=== PATIENT | female | born 1940 | race Caucasian/White ===

== ENCOUNTER 2024-02-15 17:37 | Emergency (ER) | payer MEDICARE, MEDICAID, SELFPAY ==
[2024-02-15] VITALS (39 sets, daily range): BP systolic 169–200; BP diastolic 75–107; PULSE 59–80; TEMP 36.7; O2SAT 92–99
--- NOTE | 2024-02-15 17:45 | ECG_ITS ---
The [facility] Test Date: 2024-02-15 Pat Name: NANCY GAO Department: Room: - Gender: Female Pediatric Acute Care Unit Nurse: : 1940 Requested By: CHRIS LEIJA Order Number: [id number] Reading MD: ADELA STOLL Measurements Intervals [place] Rate: 70 P: 57 SD: 142 QRS: 19 QRSD: 84 T: 65 QT: 386 QTc: 407 Interpretive Statements 1100 Sinus rhythm 9110 normal ECG Compared to ECG 06/25/2020 20:43:58 No significant changes Electronically Signed On 02-16-2024 7:45:33 EST by ADELA STOLL
--- NOTE | 2024-02-15 17:58 | ED.CHESTPAI1 ---
HPI - Chest Pain General Chief Complaint: Chest Pain Stated Complaint: chest pain Time Seen by Provider: 02/15/24 17:42 Source: patient and caregiver Mode of arrival: ambulance History of Present Illness HPI narrative: The patient is coming to us from a assisted facility she is 84 years old who is DNR CC, with history of dysarthria is coming to the ER with a left-sided 3 days of left upper chest shoulder pain, she denies any fall or trauma she denies any cough or fever The patient apparently coming here because her daughter wanted to be evaluated for her shoulder and chest pain Related Data Home Medications ?Medication ?Instructions ?Recorded ?Confirmed alendronate 70 mg tablet 70 mg PO .once weekly, saturday02/15/24 02/15/24 benzonatate 200 mg capsule 200 mg PO .q6 02/15/24 02/15/24 calcium 600 mg (as carbonate)-vit 1 tab PO DAILY 02/15/24 02/15/24 D3 20 mcg (800 unit) chewable tablet (Caltrate plus D) carbidopa 25 mg-levodopa 100 mg 1 tab PO TID PRN tremors 02/15/24 02/15/24 tablet entacapone 200 mg tablet 200 mg PO TID PRN tremors 02/15/24 02/15/24 eslicarbazepine 200 mg tablet 1,000 mg PO DAILY 02/15/24 02/15/24 (Aptiom) fluticasone furoate 27.5 1 spray intranasal DAILY 02/15/24 02/15/24 mcg/actuation nasal spray,suspension (Flonase Sensimist) mirtazapine 7.5 mg tablet 7.5 mg PO BEDTIME 02/15/24 02/15/24 omeprazole 20 mg capsule,delayed 20 mg PO DAILY 02/15/24 02/15/24 release pravastatin 40 mg tablet 40 mg PO BEDTIME 02/15/24 02/15/24 ropinirole 0.5 mg tablet 0.5 mg PO TID 02/15/24 02/15/24 sucralfate 1 gram tablet (Carafate) 1 g PO Q4H 02/15/24 02/15/24 tramadol 50 mg tablet 50 mg PO Q12H 02/15/24 02/15/24 Allergies Allergy/AdvReac Type Severity Reaction Status Date / Time buspirone (From BuSpar) Allergy Intermediate Rash Verified 02/15/24 17:47 hydroxyzine (From Vistaril) Allergy Intermediate Rash Verified 02/15/24 17:47 Penicillins Allergy Intermediate Rash Verified 02/15/24 17:47 ibuprofen Allergy Unknown Unknown Verified 02/15/24 17:47 Review of Systems ROS Narrative Although the patient is not a good historian Status of ROS 10 or more systems reviewed and unremarkable except as noted in history and below Exam Narrative Exam Narrative: Nurses notes and vital signs reviewed and patient is not hypoxic. Left shoulder exam: Limited movement of the left shoulder to 45 degrees General: Well-appearing and in no apparent distress. Skin: Warm, dry, no pallor noted. No rash. Head: Normocephalic, atraumatic. Neck: Supple, non-tender. Eye: Pupils are equal, round and EOMI. No scleral icterus. Ears, Nose, the patient have an obvious dysarthria Cardiovascular: Regular Rate and Rhythm without murmur, gallop or rub. Respiratory: No accessory muscle use or respiratory distress. Lungs are clear to auscultation, no wheezing, rales or rhonchi Chest Wall: no tenderness Back: No midline thoracic or lumbar vertebral tenderness. No CVA tenderness GI: Abdomen is soft, non-distended. Normal bowel sounds. No masses appreciated. No tenderness to palpation. No rebound, guarding, or rigidity noted. Neurological: A&O x1. No cranial nerve dysfunction observed. No truncal ataxia. Constitutional Vital Signs, click to edit/add: Last Vital Signs Temp 98.1 F 02/15/24 17:39 Pulse 73 02/15/24 17:39 Resp 16 02/15/24 17:39 BP 181/76 H 02/15/24 17:39 Pulse Ox 97 02/15/24 17:39 O2 Del Method Room Air 02/15/24 17:39 Course Vital Signs Vital signs: Vital Signs Temperature 98.1 F 02/15/24 17:39 Pulse Rate 73 02/15/24 17:39 Respiratory Rate 16 02/15/24 17:39 Blood Pressure 181/76 H 02/15/24 17:39 Pulse Oximetry 97 02/15/24 17:39 Oxygen Delivery Method Room Air 02/15/24 17:39 Temperature 98.1 F 02/15/24 17:39 Pulse Rate 73 02/15/24 17:39 Respiratory Rate 16 02/15/24 17:39 Blood Pressure 181/76 H 02/15/24 17:39 Pulse Oximetry 97 02/15/24 17:39 Oxygen Delivery Method Room Air 02/15/24 17:39 MDM - Chest Pain MDM Narrative Medical decision making narrative: The patient EKG upon arrival showing sinus rhythm with a heart rate of [address] elevation or depression CBC and chemistry showed no acute pathology with a negative troponin The pain right now is mostly secondary to shoulder pain that the patient chest x-ray and x-ray of the shoulder is pending Patient was treated in the ER with Percocet Lab Data Labs: Lab Results 02/15/24 Range/Units 18:04 WBC 5.6 (4.0-11.0) 10^3/uL RBC 3.81 L (4.20-5.40) 10^6/uL Hgb 11.8 L (12.0-16.0) g/dL Hct 35.9 L (36.0-48.0) % MCV 94.2 (81.0-99.0) fL MCH 31.0 (26.7-34.0) pg MCHC 32.9 (29.9-35.2) g/dL RDW 12.4 (11.0-15.0) % Plt Count 289 (150-450) 10^3/uL MPV 9.7 (9.5-13.5) fL Neut % (Auto) 54.1 (43.0-75.0) % Lymph % (Auto) 37.3 (20.5-60.0) % Mclennan % (Auto) 6.1 (1.7-12.0) % Eos % (Auto) 1.6 (0.9-7.0) % Baso % (Auto) 0.7 (0.2-2.0) % Neut # (Auto) 3.0 (1.4-6.5) 10^3/uL Lymph # (Auto) 2.1 (1.2-3.8) 10^3/uL Mclennan # (Auto) 0.3 (0.3-0.8) 10^3/uL Eos # (Auto) 0.1 (0.0-0.7) 10^3/uL Baso # (Auto) 0.0 (0.0-0.1) 10^3/uL Abs Immat Gran (auto) 0.01 (0.00-0.03) 10^3/uL Imm/Tot Granulo (auto) 0.2 (0.0-0.5) % Sodium 144 (136-145) mmol/L Potassium 4.1 (3.5-5.1) mmol/L Chloride 105 (98-107) mmol/L Carbon Dioxide 28.7 (21.0-32.0) mmol/L Anion Gap 14.4 BUN 20.0 H (7.0-18.0) mg/dL Creatinine 0.87 (0.55-1.02) mg/dL Est GFR ( Amer) >60 (>=60 mL/min/1.73m^2) Est GFR (Non-Af Amer) >60 (>=60 mL/min/1.73m^2) BUN/Creatinine Ratio 23.0 Glucose 105 (74-106) mg/dL Calcium 9.9 (8.5-10.1) mg/dL Total Bilirubin 0.2 (0.2-1.0) mg/dL AST 14 L (15-37) U/L ALT 9 L (14-59) U/L Alkaline Phosphatase 72 (46-116) U/L Troponin I High Sens 9.8 (4.0-51.3) pg/mL Total Protein 7.8 (6.4-8.2) g/dL Albumin 3.7 (3.4-5.0) g/dL Globulin 4.1 g/dL Albumin/Globulin Ratio 0.9 Discharge Plan Discharge Patient Disposition: Still a Patient
--- NOTE | 2024-02-15 17:59 | XR_ITS ---
[address] [address] Patient Name: NANCY GAO MRN: [id number] date: 1940 Sex: F Assigned Patient Location: ER Current Patient Location: ED.MAIN Accession/Order Number: [id number] Exam Date: 02/15/2024 18:07 Report Date: 02/15/2024 20:19 At the request of: NIKHIL SPICER Procedure: XR chest 1V EXAM: XR chest 1V HISTORY: cp COMPARISON: 06/25/2020 and earlier. TECHNIQUE: AP upright chest x-ray. FINDINGS: Lungs clear without infiltrate, edema or new density. Heart size and mediastinal contour stable. Prominent descending aorta unchanged. No pleural effusion or pneumothorax. XR/XR chest 1V IMPRESSION: Stable chest x-ray, no acute findings Electronically authenticated by: THERESE CROCKETT Date: 02/15/2024 20:19
[2024-02-15 18:10] LABS: Basophils Percent Auto 0.7 % (0.2-2.0); Eosinophils Absolute Auto 0.1 10^3/uL (0.0-0.7); Eosinophils Percent Auto 1.6 % (0.9-7.0); Hematocrit 35.9 % (36.0-48.0); Hemoglobin 11.8 g/dL (12.0-16.0); Immature Granulocytes Abs Auto 0.01 10^3/uL (0.00-0.03); Immature Granulocytes Pct Auto 0.2 % (0.0-0.5); Lymphocytes Absolute Auto 2.1 10^3/uL (1.2-3.8); Lymphocytes Percent Auto 37.3 % (20.5-60.0); Mean Corpuscular HGB Conc 32.9 g/dL (29.9-35.2); Mean Corpuscular Volume 94.2 fL (81.0-99.0); Mean Platelet Volume 9.7 fL (9.5-13.5); Monocytes Absolute Auto 0.3 10^3/uL (0.3-0.8); Monocytes Percent Auto 6.1 % (1.7-12.0); Neutrophils Percent Auto 54.1 % (43.0-75.0); Platelet Count 289 10^3/uL (150-450); Red Blood Count 3.81 10^6/uL (4.20-5.40); Red Cell Distribution Width 12.4 % (11.0-15.0); White Blood Count 5.6 10^3/uL (4.0-11.0)
[2024-02-15 18:27] LABS: Alanine Aminotransferase 9 U/L (14-59); Albumin Globulin Ratio 0.9; Albumin Level 3.7 g/dL (3.4-5.0); Alkaline Phosphatase 72 U/L (46-116); Anion Gap 14.4; Aspartate Amino Transferase 14 U/L (15-37); Bilirubin Total 0.2 mg/dL (0.2-1.0); Calcium 9.9 mg/dL (8.5-10.1); Carbon Dioxide 28.7 mmol/L (21.0-32.0); Chloride 105 mmol/L (98-107); Estimated GFR (African America >60 (>=60 mL/min/1.73m^2); Estimated GFR (Non-African Ame >60 (>=60 mL/min/1.73m^2); Globulin 4.1 g/dL; Glucose 105 mg/dL (74-106); Potassium 4.1 mmol/L (3.5-5.1); Sodium 144 mmol/L (136-145); Total Protein 7.8 g/dL (6.4-8.2); Troponin I High Sensitivity 9.8 pg/mL (4.0-51.3)
--- NOTE | 2024-02-15 18:32 | XR_ITS ---
The [address] [address] Patient Name: NANCY GAO MRN: [id number] date: 1940 Sex: F Assigned Patient Location: ER Current Patient Location: Accession/Order Number: [id number] Exam Date: 02/15/2024 18:45 Report Date: 02/15/2024 20:44 At the request of: NIKHIL SPICER Procedure: XR shoulder LT min 2V EXAM: XR shoulder LT min 2V HISTORY: The patient is an 84-year-old female, pain COMPARISON: None. FINDINGS: The left shoulder is radiographically negative with no evidence of fracture, dislocation, calcific tendonitis, or other osseous or articular abnormalities. The glenohumeral joint is grossly maintained. The acromioclavicular joint is maintained. The subacromial space is maintained. XR/XR shoulder LT min 2V IMPRESSION: Negative. Electronically authenticated by: SERINA MORAN Date: 02/15/2024 20:44
--- NOTE | 2024-02-15 18:49 | XR_ITS ---
The [address] [address] Patient Name: NANCY GAO MRN: [id number] date: 1940 Sex: F Assigned Patient Location: ER Current Patient Location: ER Accession/Order Number: [id number] Exam Date: 02/15/2024 18:45 Report Date: 02/15/2024 20:45 At the request of: NIKHIL SPICER Procedure: XR forearm LT 2V EXAM: XR forearm LT 2V HISTORY: The patient is an 84-year-old female, fall COMPARISON: None. XR/XR forearm LT 2V IMPRESSION: No acute fractures are seen throughout the lengths of the left radius and ulna. 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 Electronically authenticated by: SERINA MORAN Date: 02/15/2024 20:45
[2024-02-15] MEDS: OXYCODONE HCL/ACETAMINOPHEN 5MG/325MG 1 TAB PO (18:50)
--- NOTE | 2024-02-15 20:57 | ED_ITS ---
HPI - Chest Pain General Chief Complaint: Chest Pain Stated Complaint: chest pain Time Seen by Provider: 02/15/24 17:42 Source: patient and caregiver Mode of arrival: ambulance History of Present Illness HPI narrative: 84-year-old female presents to the emergency department and was initially seen by Dr. Noriega and signed out to me after discussing the case with her thoroughly. Please see her full history and physical exam. Related Data Home Medications ?Medication ?Instructions ?Recorded ?Confirmed alendronate 70 mg tablet 70 mg PO .once weekly, saturday02/15/24 02/15/24 benzonatate 200 mg capsule 200 mg PO .q6 02/15/24 02/15/24 calcium 600 mg (as carbonate)-vit 1 tab PO DAILY 02/15/24 02/15/24 D3 20 mcg (800 unit) chewable tablet (Caltrate plus D) carbidopa 25 mg-levodopa 100 mg 1 tab PO TID PRN tremors 02/15/24 02/15/24 tablet entacapone 200 mg tablet 200 mg PO TID PRN tremors 02/15/24 02/15/24 eslicarbazepine 200 mg tablet 1,000 mg PO DAILY 02/15/24 02/15/24 (Aptiom) fluticasone furoate 27.5 1 spray intranasal DAILY 02/15/24 02/15/24 mcg/actuation nasal spray,suspension (Flonase Sensimist) mirtazapine 7.5 mg tablet 7.5 mg PO BEDTIME 02/15/24 02/15/24 omeprazole 20 mg capsule,delayed 20 mg PO DAILY 02/15/24 02/15/24 release pravastatin 40 mg tablet 40 mg PO BEDTIME 02/15/24 02/15/24 ropinirole 0.5 mg tablet 0.5 mg PO TID 02/15/24 02/15/24 sucralfate 1 gram tablet (Carafate) 1 g PO Q4H 02/15/24 02/15/24 tramadol 50 mg tablet 50 mg PO Q12H 02/15/24 02/15/24 Allergies Allergy/AdvReac Type Severity Reaction Status Date / Time buspirone (From BuSpar) Allergy Intermediate Rash Verified 02/15/24 17:47 hydroxyzine (From Vistaril) Allergy Intermediate Rash Verified 02/15/24 17:47 Penicillins Allergy Intermediate Rash Verified 02/15/24 17:47 ibuprofen Allergy Unknown Unknown Verified 02/15/24 17:47 Exam Constitutional Vital Signs, click to edit/add: Last Vital Signs Temp 98.1 F 02/15/24 17:39 Pulse 61 02/15/24 20:30 Resp 14 02/15/24 20:30 BP 177/83 H 02/15/24 20:30 Pulse Ox 97 02/15/24 20:30 O2 Del Method Room Air 02/15/24 17:39 Course Vital Signs Vital signs: Vital Signs Temperature 98.1 F 02/15/24 17:39 Pulse Rate 73 02/15/24 17:39 Respiratory Rate 16 02/15/24 17:39 Blood Pressure 181/76 H 02/15/24 17:39 Pulse Oximetry 97 02/15/24 17:39 Oxygen Delivery Method Room Air 02/15/24 17:39 Temperature 98.1 F 02/15/24 17:39 Pulse Rate 61 02/15/24 20:30 Respiratory Rate 14 02/15/24 20:30 Blood Pressure 177/83 H 02/15/24 20:30 Pulse Oximetry 97 02/15/24 20:30 Oxygen Delivery Method Room Air 02/15/24 17:39 MDM - Chest Pain MDM Narrative Medical decision making narrative: Her workup is negative including troponin and several x-rays. She is released back to [facility]. Differential Diagnosis Differential diagnosis: Likely pneumothorax, unstable angina pectoris, atypical chest pain, st elevation myocardial infarction and chest pain Lab Data Attestation: I reviewed the patient's lab results. Labs: Lab Results 02/15/24 Range/Units 18:04 WBC 5.6 (4.0-11.0) 10^3/uL RBC 3.81 L (4.20-5.40) 10^6/uL Hgb 11.8 L (12.0-16.0) g/dL Hct 35.9 L (36.0-48.0) % MCV 94.2 (81.0-99.0) fL MCH 31.0 (26.7-34.0) pg MCHC 32.9 (29.9-35.2) g/dL RDW 12.4 (11.0-15.0) % Plt Count 289 (150-450) 10^3/uL MPV 9.7 (9.5-13.5) fL Neut % (Auto) 54.1 (43.0-75.0) % Lymph % (Auto) 37.3 (20.5-60.0) % Price % (Auto) 6.1 (1.7-12.0) % Eos % (Auto) 1.6 (0.9-7.0) % Baso % (Auto) 0.7 (0.2-2.0) % Neut # (Auto) 3.0 (1.4-6.5) 10^3/uL Lymph # (Auto) 2.1 (1.2-3.8) 10^3/uL Price # (Auto) 0.3 (0.3-0.8) 10^3/uL Eos # (Auto) 0.1 (0.0-0.7) 10^3/uL Baso # (Auto) 0.0 (0.0-0.1) 10^3/uL Abs Immat Gran (auto) 0.01 (0.00-0.03) 10^3/uL Imm/Tot Granulo (auto) 0.2 (0.0-0.5) % Sodium 144 (136-145) mmol/L Potassium 4.1 (3.5-5.1) mmol/L Chloride 105 (98-107) mmol/L Carbon Dioxide 28.7 (21.0-32.0) mmol/L Anion Gap 14.4 BUN 20.0 H (7.0-18.0) mg/dL Creatinine 0.87 (0.55-1.02) mg/dL Est GFR ( Amer) >60 (>=60 mL/min/1.73m^2) Est GFR (Non-Af Amer) >60 (>=60 mL/min/1.73m^2) BUN/Creatinine Ratio 23.0 Glucose 105 (74-106) mg/dL Calcium 9.9 (8.5-10.1) mg/dL Total Bilirubin 0.2 (0.2-1.0) mg/dL AST 14 L (15-37) U/L ALT 9 L (14-59) U/L Alkaline Phosphatase 72 (46-116) U/L Troponin I High Sens 9.8 (4.0-51.3) pg/mL Total Protein 7.8 (6.4-8.2) g/dL Albumin 3.7 (3.4-5.0) g/dL Globulin 4.1 g/dL Albumin/Globulin Ratio 0.9 Discharge Plan Discharge Chief Complaint: Chest Pain Clinical Impression: Chronic shoulder pain, Chest pain Patient Disposition: Home, Self-Care Time of Disposition Decision: 20:56 Condition: Good Mode of Transportation: Private Vehicle Prescriptions / Home Meds: No Action alendronate 70 mg tablet 70 mg PO .once weekly, saturday Aptiom 200 mg tablet 1,000 mg PO DAILY benzonatate 200 mg capsule 200 mg PO .q6 carbidopa-levodopa 25-100 mg tablet 1 tab PO TID PRN (Reason: tremors) Caltrate 600 plus D 600 mg-20 mcg (800 unit) tablet,chewable 1 tab PO DAILY sucralfate [Carafate] 1 gram tablet 1 g PO Q4H entacapone 200 mg tablet 200 mg PO TID PRN (Reason: tremors) Flonase Sensimist 27.5 mcg/actuation spray,suspension 1 spray intranasal DAILY Rx Instructions: into each nostril mirtazapine 7.5 mg tablet 7.5 mg PO BEDTIME omeprazole 20 mg capsule,delayed release(DR/EC) 20 mg PO DAILY pravastatin 40 mg tablet 40 mg PO BEDTIME ropinirole 0.5 mg tablet 0.5 mg PO TID tramadol 50 mg tablet 50 mg PO Q12H Print Language: Luxembourgish Instructions: Chest Pain (ED), Arm Pain (ED) Referrals: CHRIS LEIJA DO [Primary Care Provider] - 1 week
== END 2024-02-15 23:34 | disposition home or self-care (01) ==
PROVIDERS: Emergency Medicine; Emergency Provider Emergency Medicine; PCP Internal Medicine
DX: R07.9 Chest pain, unspecified (principal); M25.512 Pain in left shoulder; G89.29 Other chronic pain; Z66 Do not resuscitate; R47.1 Dysarthria and anarthria
CPT/HCPCS: 36415; 71045; 73030; 73090; 80053; 84484; 85025; 93005; 99285

== ENCOUNTER 2024-05-21 21:29 | Inpatient (IN) | payer MEDICARE, MEDICAID, SELFPAY ==
[2024-05-21] VITALS (20 sets, daily range): BP systolic 83–157; BP diastolic 44–97; PULSE 52–92; TEMP 35.9; O2SAT 94–99
--- NOTE | 2024-05-21 21:32 | ED_ITS ---
HPI HPI - General Adult General Chief complaint: Altered Mental Status Stated complaint: other Time Seen by Provider: 05/21/24 21:32 History of Present Illness HPI narrative: Patient is DNR CC. Patient is a 84-year-old female who is presenting to the ER with chief complaint of unresponsive episode. There is approximately 1 hour that patient was not seen from her normal baseline. Patient was reassessed by nursing staff tonight, patient was unresponsive. Please refer back to nursing notes when she was checked at bedtime. Patient is a DNR CC. They have spoken to Dr. Moreno, the physician for the facility. He recommended keeping the patient at [facility] and patient can be reassessed tomorrow. This is per nursing staff from [facility]. Daughter was contacted, and daughter wanted patient sent to the ER for evaluation of why she is very unresponsive. Patient daughter is a power of commercial real estate attorney we are being told. Patient is normally eating and functioning. Patient is enrolled in hospice. Hospice nurse has been called. [facility] and patient was being taken out by EMS, hospice nurse will be coming to the ER as well along with daughter. Carpi is daughter's name, power of commercial real estate attorney. I will be calling her to discuss the case. In reviewing her diagnoses, patient has Parkinson's, COPD, bipolar 2, hypertension, dysarthria and anarthria, cognitive communicative defect, major depressive disorder, anxiety, GERD, All systems are negative except as noted/marked. All systems reviewed and otherwise negative. Nurses note and vital signs reviewed and patient is not hypoxic. Patient has her eyes open, tongue out, she is not speaking, she is not following commands, she does not respond to painful stimuli, patient has a GCS of 6. Patient is DNR CC General: The patient appears well and in no apparent distress. Patient is resting comfortably on cart. Patient is not toxic, lethargic, or listless. Patient has baseline tremors, she has secondary Parkinson's history. Skin: Warm, dry, no pallor noted. There is no rash noted. No petechiae, purpura. Head: Normocephalic, atraumatic. Patient has tongue protrusion, this is chronic. Patient does have coarse, gurgly upper respiratory noise on inspiration, Eye: Normal conjunctiva, no drainage, EOMI. PERRL Ears, Nose, Mouth, and Throat: oral mucosa is moist. Nares patent. Mouth without vesicles. Cardiovascular: Regular Rate and Rhythm, no murmur, gallop, rub Respiratory: Patient is in no distress, no accessory muscle use, lungs are clear to auscultation, no wheezing, rales or rhonchi. Breath sounds are clear equal bilateral. Back: non-tender, no CVA tenderness bilaterally to percussion. No CT LS midline pain GI: Soft, no grimace with palpation diffusely to abdomen, no peritoneal signs or grimace noted, no rigidity or tympany, no pulsatile mass, no masses appreciated. No distention Musculoskeletal: Patient has no active range of motion of extremities. With passive range of motion, patient does have some muscle tone to bilateral upper extremities, right side appears to be slightly stronger than left. When raising up patient's lower extremities, they drop to the table quickly, no obvious muscle tone noted to lower extremities. Neurological: A&O x0, GCS of 6. Related Data Home Medications ?Medication ?Instructions ?Recorded ?Confirmed alendronate 70 mg tablet 70 mg PO .once weekly, saturday02/15/24 02/15/24 benzonatate 200 mg capsule 200 mg PO .q6 02/15/24 02/15/24 calcium 600 mg (as carbonate)-vit 1 tab PO DAILY 02/15/24 02/15/24 D3 20 mcg (800 unit) chewable tablet (Caltrate plus D) carbidopa 25 mg-levodopa 100 mg 1 tab PO TID PRN tremors 02/15/24 02/15/24 tablet entacapone 200 mg tablet 200 mg PO TID PRN tremors 02/15/24 02/15/24 eslicarbazepine 200 mg tablet 1,000 mg PO DAILY 02/15/24 02/15/24 (Aptiom) fluticasone furoate 27.5 1 spray intranasal DAILY 02/15/24 02/15/24 mcg/actuation nasal spray,suspension (Flonase Sensimist) mirtazapine 7.5 mg tablet 7.5 mg PO BEDTIME 02/15/24 02/15/24 omeprazole 20 mg capsule,delayed 20 mg PO DAILY 02/15/24 02/15/24 release pravastatin 40 mg tablet 40 mg PO BEDTIME 02/15/24 02/15/24 ropinirole 0.5 mg tablet 0.5 mg PO TID 02/15/24 02/15/24 sucralfate 1 gram tablet (Carafate) 1 g PO Q4H 02/15/24 02/15/24 tramadol 50 mg tablet 50 mg PO Q12H 02/15/24 02/15/24 Allergies Allergy/AdvReac Type Severity Reaction Status Date / Time buspirone (From BuSpar) Allergy Intermediate Rash Verified 02/15/24 17:47 hydroxyzine (From Vistaril) Allergy Intermediate Rash Verified 02/15/24 17:47 Penicillins Allergy Intermediate Rash Verified 02/15/24 17:47 ibuprofen Allergy Unknown Unknown Verified 02/15/24 17:47 Opioid HPI Opioid Management Most Recent Opioid Data: No Data to Display Exam Constitutional Vital Signs, click to edit/add: Last Vital Signs Temp 96.7 F L 05/21/24 21:30 Pulse 64 05/22/24 01:50 Resp 10 L 05/22/24 01:50 BP 134/67 05/22/24 01:30 Pulse Ox 96 05/22/24 01:50 O2 Del Method Room Air 05/21/24 21:44 Course Vital Signs Vital signs: Vital Signs Temperature 96.7 F L 05/21/24 21:30 Pulse Rate 90 05/21/24 21:30 Respiratory Rate 20 05/21/24 21:30 Blood Pressure 157/84 H 05/21/24 21:30 Pulse Oximetry 98 05/21/24 21:30 Oxygen Delivery Method Room Air 05/21/24 21:30 Temperature 96.7 F L 05/21/24 21:30 Pulse Rate 64 05/22/24 01:50 Respiratory Rate 10 L 05/22/24 01:50 Blood Pressure 134/67 05/22/24 01:30 Pulse Oximetry 96 05/22/24 01:50 Oxygen Delivery Method Room Air 05/21/24 21:44 Medical Decision Making MDM Narrative Medical decision making narrative: 2139 I have spoken to patient's daughter, Capri. She stated that Dr. Moreno has said that she has a history of seizures, but patient's daughter then power of commercial real estate attorney for 4 years and has no recollection that patient ever having seizures before. She does have Parkinson's. She would like testing to be done to try and understand why patient is unresponsive at this time. EKG #2. Tachycardic rhythm, RR intervals appear to be equal, questionable SVT versus A-fib with RVR versus a flutter. Heart rate was read as 163, QTc of 486. Artifact seen. Tachycardic rhythm is new within 12 minutes after the first EKG was done. EKG #3. Patient appears to be in a 3-1 a flutter. Irregular irregular at 86 beats a minute. Normal axis deviation. Artifact seen. QTc of 395. Artifact noted. 2210 hospice nurse James from [facility] stopped by to see the patient, reported updates were given to her as well by myself and Cecilia PASCUAL. 2213 I spoke to the field evidence technician answering the phones for [facility]. I requested to speak to the radiologist, I am waiting for them to call back. Direct line to the ER was given. 2215 patient's daughter called, stating that she cannot come to the hospital tonight because she does not have enough car seats for the kids at her house. 2225 patient had another short episode of heart rate in the 150s to 60s. Patient's heart rate improved went back down into the 80s and 90s with most likely 3-1 a flutter after only approximately 1 minute. Patient is going to be given 1 mg of Ativan for comfort, also given 1 dose of Lopressor to help maintain patient's heart rate in the 80s or 90s so she does not have palpitations or possible discomfort with palpitations. Patient's mental status has not changed. 2323 EKG #4. Patient has converted back to normal sinus rhythm at 55 beats a minute. Normal axis deviation. Sinus bradycardia noted, 55 beats a minute. QTc of 435. 0015 I do spoke to patient's daughter again, Capri, power of commercial real estate attorney. She would like patient admitted to the hospital which is a safe option at this point. Patient has had a few more episodes where she would become tachycardic, most likely a flutter for a few minutes and then patient heart rate will resolve and go back into normal sinus rhythm. After Lopressor was given, patient's heart rate was in the 50s, bradycardic sinus rhythm. Patient blood pressure did drop slightly, patient was given 500 cc of fluids. First troponin was elevated at 199. It is questionable how long this may have been going on as far as intermittent tachycardic/a flutter. This could be going on for days or weeks, which could be part of patient's elevated troponin, uncertain. I asked Capri, how that she normally ambulate. Patient cannot walk on her own. Patient is a 1-2 person assist using a walker on a good day secondary to her Parkinson's. Lately, patient has been a total assist and wheelchair bound that she cannot get up with a walker. Daughter still agrees with DNRCC status, however she would like patient monitored to see if something could be done to help control heart rate better to help improve quality of life, not quantity. She was thankful for the phone call, I am currently calling Ann-Marie nurse practitioner for the hospitalist team. [address] brain showed no acute intracranial process. I discussed this case with radiologist Dr. Lawrence at 2243. Chest x-ray showed no acute process, mild hypoinflated lungs, no lobar consolidation or edema, no pleural effusion or pneumothorax. Chest x-ray was read by Dr. Park. CTA chest impressions were discussed with Ann-Marie JUÁREZ. Patient has mucous plugs of the right lower lobe with associated postobstructive pneumonia and/or atelectasis. Air bronchograms noted in the right lower lobe with the affected area. Mild enlarged heart size. No thoracic aortic aneurysm or dissection. No PE, no edema, no effusion, no pneumothorax. Mild enlarged right thyroid lobe with cystic nodule within the right thyroid lobe. Ann-Marie JUÁREZ is aware of these readings as well. Multiple medications have been given, IV fluids, continuous cardiac monitoring, monitoring intermittent tachycardia versus a flutter 3-1 versus bradycardia. 4 different EKGs have been done. Critical care time 65 minutes exclusive from separate billable procedures that were performed. The following was considered in the determination of critical care but not limited to the level of medical decision making, intensive cardiac and/or respiratory monitoring, frequent vital sign monitoring, evaluation of laboratory studies, evaluation of radiographic studies, oxygen monitoring, and constant monitoring and speaking to family at bedside Lab Data Lab results reviewed: Yes I reviewed the patient's lab results Labs: Lab Results 05/21/24 Range/Units 21:40 WBC 7.6 (4.0-11.0) 10^3/uL RBC 3.49 L (4.20-5.40) 10^6/uL Hgb 10.8 L (12.0-16.0) g/dL Hct 34.0 L (36.0-48.0) % MCV 97.4 (81.0-99.0) fL MCH 30.9 (26.7-34.0) pg MCHC 31.8 (29.9-35.2) g/dL RDW 13.1 (11.0-15.0) % Plt Count 311 (150-450) 10^3/uL MPV 9.7 (9.5-13.5) fL Neut % (Auto) 73.5 (43.0-75.0) % Lymph % (Auto) 18.5 L (20.5-60.0) % [place] % (Auto) 6.7 (1.7-12.0) % Eos % (Auto) 0.5 L (0.9-7.0) % Baso % (Auto) 0.4 (0.2-2.0) % Neut # (Auto) 5.6 (1.4-6.5) 10^3/uL Lymph # (Auto) 1.4 (1.2-3.8) 10^3/uL [place] # (Auto) 0.5 (0.3-0.8) 10^3/uL Eos # (Auto) 0.0 (0.0-0.7) 10^3/uL Baso # (Auto) 0.0 (0.0-0.1) 10^3/uL Abs Immat Gran (auto) 0.03 (0.00-0.03) 10^3/uL Imm/Tot Granulo (auto) 0.4 (0.0-0.5) % PT 11.0 (9.0-11.6) sec INR 1.04 APTT 24.9 (22.3-36.2) sec VBG pH 7.318 L (7.330-7.430) VBG pCO2 57.1 H (40.0-52.0) mmHg Sodium 145 (136-145) mmol/L Potassium 4.4 (3.5-5.1) mmol/L Chloride 108 H (98-107) mmol/L Carbon Dioxide 29.9 (21.0-32.0) mmol/L Anion Gap 11.5 BUN 27.0 H (7.0-18.0) mg/dL Creatinine 1.02 (0.55-1.02) mg/dL Est GFR ( Amer) >60 (>=60 mL/min/1.73m^2) Est GFR (Non-Af Amer) 52 L (>=60 mL/min/1.73m^2) BUN/Creatinine Ratio 26.5 Glucose 139 H (74-106) mg/dL Calcium 9.3 (8.5-10.1) mg/dL Total Bilirubin 0.2 (0.2-1.0) mg/dL AST 39 H (15-37) U/L ALT 18 (14-59) U/L Alkaline Phosphatase 85 (46-116) U/L Troponin I High Sens 199.9 H* (4.0-51.3) pg/mL NT-Pro-B Natriuret Pep 1139.0 (<=1800.0) pg/mL Total Protein 7.3 (6.4-8.2) g/dL Albumin 3.6 (3.4-5.0) g/dL Globulin 3.7 g/dL Albumin/Globulin Ratio 1.0 TSH 3.063 (0.358-3.740) uIU/mL Respiratory acidosis, pH 7.31, CO2 57. Troponin 199 ECG Data Attestation: I personally reviewed and interpreted this ECG as follows: (EKG interpretation. Artifact noted secondary to patient shaking. Normal axis deviation. Normal sinus rhythm 99 beats a minute. QTc of 418.) Discharge Plan Discharge Chief Complaint: Altered Mental Status Clinical Impression: Unresponsive, Change in mental status, Atrial flutter with rapid ventricular response, Mild dehydration, Acute respiratory acidosis Patient Disposition: Admitted As Inpatient Time of Disposition Decision: 00:20 Condition: Serious
--- OUTSIDE RECORDS SUMMARY | 2024-05-21 21:35 | XMS_ITS | CCD ---
Author Organization [facility] [place] [facility] Care Team Providers Care Leather Drier Name Role Phone MERLY, DR NICK Juárez Attending Unavailabl nguyễn DUNHAMECK, DR NICK Juárez Consulting Unavailabl e REINECK, DR NICK Juárez Admitting Unavailabl e VALONE, DR PEREZ Primary Care Unavailable AHDOOTONEAL Consulting Unavailable GAVI, ELIANA Consulting Unavailable VALONE, DR PEREZ Attending Unavailable VALONE, DR PREEZ Consulting Unavailable VALONE, DR PEREZ Primary Care Unavailable VALONE, DR PEREZ Admitting Unavailable VALONE, DR PEREZ Primary Care Unavailable SELVIN, DR LUIS Sanders Attending Unavailable SELVIN, DR LUIS Sanders Consulting Unavailable SELVIN, DR LUIS Sanders Admitting Unavailable JOSSELINE, YUMIKO Consulting Unavailable Alfredito, Moses Consulting Unavailable Allergies Allergy Classification Reported Allergen(s) Allergy Type Date of Onset Reaction(s) Facility Antihistamines (1 source) hydrOXYzine Drug Allergy 01-16-2013 [facility] Repository busPIRone (1 source) busPIRone Drug Allergy 11-15-2016 [facility] Rep[facility] NSAIDs (1 source) Ibuprofen Drug Allergy 01-16-2013 [facility] Rep[facility] Penicillins (antibiotic) (1 source) Penicillins Drug Allergy 01-16-2013 [facility] Repository Problems Active Problems Problem Classification Problem Date Documented Da te Episodic/Chronic Anxiety disorders (1 source) Anxiety disorder, unspecified; Translations: [ANXIETY DISORDER UNSPECIFIED] Onset: 06-28-2020 Chronic Chronic obstructive pulmonary disease and bronchiectasis (1 source) Chronic obstructive pulmonary disease, unspecified; Translations: [COPD UNSPECIFIED] Onset: 06-28-2020 Chronic Diabetes mellitus without complication (1 source) Type 2 diabetes mellitus without complications; Translations: [TYPE 2 DM WITHOUT COMPLICATIONS] Onset: 06-28-2020 Chronic Esophageal disorders (1 source) Gastro-esophageal reflux disease without esophagitis; Translations: [GERD WITHOUT ESOPHAGITIS] Onset: 06-28-2020 Chronic Essential hypertension (1 source) Essential (primary) hypertension; Translations: [ESSENTIAL PRIMARY HYPERTENSION] Onset: 06-28-2020 Chronic Headache; including migraine (3 sources) Headache; including migraine; Translations: [HEADACHE UNSPECIFIED] Onset: 05-06-2020 Mood disorders (1 source) Bipolar disorder, unspecified; Translations: [BIPOLAR DISORDER UNSPECIFIED] Onset: 06-28-2020 Chronic Nonspecific chest pain (4 sources) Chest pain, unspecified; Translations: [CHEST PAIN UNSPECIFIED] Onset: 06-25-2020 Episodic Osteoarthritis (1 source) Unspecified osteoarthritis, unspecified site; Translations: [UNSPECIFIED OSTEOARTHRITIS UNS SITE] Onset: 05-12-2020 Chronic Osteoporosis (1 source) Age-related osteoporosis without current pathological fracture; Translations: [AGE-REL OSTEOPOR W/O CURR PATH FX] Onset: 05-12-2020 Chronic Other aftercare (5 sources) 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; Translations: [[employer]ER CURRENT DRUG THERAPY] Onset: 06-28-2020 Episodic Other aftercare (1 source) 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; Translations: [PRISON CURRENT USE OF ASPIRIN] Onset: 06-28-2020 Episodic Other hereditary and degenerative nervous system conditions (1 source) Restless legs syndrome; Translations: [RESTLESS LEGS SYNDROME] Onset: 05-12-2020 Chronic Parkinson`s disease (1 source) Parkinson's disease; Translations: [PARKINSONS DISEASE] Onset: 06-28-2020 Chronic Peripheral and visceral atherosclerosis (1 source) Peripheral vascular disease, unspecified; Translations: [PERIPHERAL VASCULAR DISEASE UNS] Onset: 05-12-2020 Chronic Past or Other Problems Problem Classification Problem Date Documented Da te Episodic/Chronic Calculus of urinary tract (1 source) Personal history of urinary calculi; Translations: [PERSONAL HISTORY OF URINARY CALCULI] Onset: 05-12-2020 Episodic Fluid and electrolyte disorders (1 source) Hypokalemia; Translations: [HYPOKALEMIA] Onset: 05-12-2020 Episodic Other injuries and conditions due to external causes (1 source) Encounter for examination and observation following other accident; Translations: [ENC EXAM AND OBSERVATION FOLLOW OTH ACC] Onset: 05-12-2020 Episodic Residual codes; unclassified (1 source) Sleep disorder, unspecified; Translations: [SLEEP DISORDER UNSPECIFIED] Onset: 05-12-2020 Episodic Screening and history of mental health and substance abuse codes (1 source) Personal history of nicotine dependence; Translations: [PERSONAL HISTORY OF NICOTINE DEPEND] Onset: 05-12-2020 Episodic Urinary tract infections (1 source) Urinary tract infection, site not specified; Translations: [UTI SITE NOT SPECIFIED] Onset: 05-12-2020 Episodic Results Test Name Value Interpretation Reference Range Facility Dipstick and Microscopicon 0 11-14-2020 Appearance (U) Cloudy Critically abnormal Clear F [facility] Comment on above: Order Comment: Name Collection Type:: Clean-Voided Midstream Performed By: #### C UU, ADDONUAPLUS #### [address] Bacteria,Urine 4+ High None Seen [facility] Comment on above: Order Comment: Name Collection Type:: Clean-Voided Midstream Result Comment: PERF ORMED BY: [place] [address] PATHOLOGIST SADDLE TREE STITCHER MOSHE SERVIN M.D. Performed By: #### C UU, ADDONUAPLUS #### [facility] [address] [place] [address] [place] Bilirubin,Urine Normal Negative [facility] Comment on above: Order Comment: Name Collection Type:: Clean-Voided Midstream Result Comment: Unab le to obtain accurate result due to color interference. Performed By: #### C UU, ADDONUAPLUS #### [facility] [address] [place] [address] [place] Calcium Oxalate Crystals,Urine 2+ Normal [facility] Comment on above: Order Comment: Name Collection Type:: Clean-Voided Midstream Performed By: #### C UU, ADDONUAPLUS #### [address] Color (U) Angelina Critically abnormal Yellow [facility] Comment on above: Order Comment: Name Collection Type:: Clean-Voided Midstream Performed By: #### C UU, ADDONUAPLUS #### [facility] [address] [place] [address] [place] Glucose Ql (U) Normal Normal [facility] Comment on above: Order Comment: Name Collection Type:: Clean-Voided Midstream Result Comment: Unab le to obtain accurate result due to color interference. Performed By: #### C UU, ADDONUAPLUS #### [address] Ketones Ql (U) Normal Negative [facility] Comment on above: Order Comment: Name Collection Type:: Clean-Voided Midstream Result Comment: Unab le to obtain accurate result due to color interference. Performed By: #### C UU, ADDONUAPLUS #### [address] Leukocyte esterase Test strip Ql (U) Normal Negative [facility] Comment on above: Order Comment: Name Collection Type:: Clean-Voided Midstream Result Comment: Unab le to obtain accurate result due to color interference. Performed By: #### C UU, ADDONUAPLUS #### [place] [address] [place] Nitrite,Urine Normal Negative [facility] Comment on above: Order Comment: Name Collection Type:: Clean-Voided Midstream Result Comment: Unab le to obtain accurate result due to color interference. Performed By: #### C UU, ADDONUAPLUS #### [place] [address] [place] Occult Blood,Urine Normal Negative [facility] Comment on above: Order Comment: Name Collection Type:: Clean-Voided Midstream Result Comment: Unab le to obtain accurate result due to color interference. Performed By: #### C UU, ADDONUAPLUS #### [place] [address] [place] pH,Urine Normal 5.0-9.0 [facility] Comment on above: Order Comment: Name Collection Type:: Clean-Voided Midstream Result Comment: Unab le to obtain accurate result due to color interference. Performed By: #### C UU, ADDONUAPLUS #### [place] [address] [place] Protein,Urine Normal Negative [facility] Comment on above: Order Comment: Name Collection Type:: Clean-Voided Midstream Result Comment: Unab le to obtain accurate result due to color interference. Performed By: #### C UU, ADDONUAPLUS #### [address] RBC,Urine 20-49 High 0-4 [facility] Comment on above: Order Comment: Name Collection Type:: Clean-Voided Midstream Performed By: #### C UU, ADDONUAPLUS #### [address] Specificy [place],Urine 1.015 Normal 1.001-1.030 [facility] Comment on above: Order Comment: Name Collection Type:: Clean-Voided Midstream Performed By: #### C UU, ADDONUAPLUS #### [address] Squamous Epithelial Cell,Urine None Seen Normal 0-2 [facility] Comment on above: Order Comment: Name Collection Type:: Clean-Voided Midstream Performed By: #### C UU, ADDONUAPLUS #### [address] Urobilinogen,Urine Normal Normal [facility] Comment on above: Order Comment: Name Collection Type:: Clean-Voided Midstream Result Comment: Unab le to obtain accurate result due to color interference. Performed By: #### C UU, ADDONUAPLUS #### [address] WBC,Urine 20-49 High 0-4 [facility] Comment on above: Order Comment: Name Collection Type:: Clean-Voided Midstream Performed By: #### C UU, ADDONUAPLUS #### [address] Urine Cultureon 11-14-2020 Bacteria identified Cx Nom (U) ORGANISM: Escherichia coli (O:ESCCOL) [place] Count >100,000 Aerobic LINDA Charge (NUC86) ----- SUSCEPTIBILITY ---- ORGANISM: O:ESCCOL ANTIBIOTIC INTERPRETATION LINDA Amikacin S <16 Ampicillin S <8 Ampicillin/Sulbactam S <8/4 Aztreonam S <4 Cefazolin S <2 Cefepime S <2 Ceftazidime S <1 Ceftazidime/Avibacta m S <8 Ceftriaxone S <1 Ciprofloxacin S <1 Ertapenem S <0.5 Gentamicin S <4 Levofloxacin S <2 Meropenem S <1 Nitrofurantoin S <32 Piperacillin/Tazobac perales S <16 Tetracycline S <4 Tigecycline S <2 Tobramycin S <4 Trimethoprim/Sulfame thoxazole S <2/38 S = SUSCEPTIBLE I = INTERMEDIATE R = RESISTANT BLANK = DATA NOT AVAILABLE, OR DRUG NOT ADVISABLE OR TESTED R* = RESISTANCE DUE TO EXTENDED SPECTRUM BETA-LACTAMASES ESBL = EXTENDED SPECTRUM BETA-LACTAMASE TFG = THYMIDINE-DEPENDENT STRAIN ANTONIETTA = BETA-LACTAMASE POSITIVE IB = INDUCIBLE BETA-LACTAMASE. APPEARS IN PLACE OF 'S' WITH SPECIES KNOWN TO POSSESS INDUCIBLE BETA-LACTAMASES. POTENTIALLY THEY MAY BECOME RESISTANT TO ALL B-LACTAM DRUGS. PERFORMED BY: [place] [address] PATHOLOGIST SADDLE TREE STITCHER MOSHE SERVIN M.D. Normal [facility] Comment on above: Performed By: #### C UU, ADDONUAPLUS #### [facility] [address] [place] [address] AMMONIAon 09-01-2020 Ammonia (P) [Moles/Vol] 28 umol/L Normal 10-30 [facility] Comment on above: Performed By: #### A MM ####[facility] [address] [place] [address] BNPon 06-25-2020 Natriuretic peptide B (Bld) [Mass/Vol] 329.0 pg/mL Normal <=1,800.0 [facility] Comment on above: Performed By: #### B WELDER FITTER, BMP, HSTROPN ####[facility] [address] [place] [address] CBC AUTO DIFFon 06-25-2020 BASO # 0.0 103/ul Normal 0.0-0.1 [facility] Comment on above: Performed By: #### C BC #### [facility] [address] [place], [place] [address] Maryse Foster Basophils/100 WBC (Bld) 0.1 % Critically low 0.2-2.0 [facility] Comment on above: Performed By: #### C BC #### [facility] [address] [place] [id number] Maryse Foster EO # 0.0 103/ul Normal 0.0-0.7 [facility] Comment on above: Performed By: #### C BC #### [facility] [address] [id number] Maryse Foster Eosinophils/100 WBC (Bld) 0.0 % Critically low 0.9-7.0 [facility] Comment on above: Performed By: #### C BC #### [facility] [address] [place] [address] Maryse Foster Erythrocyte distribution width (RBC) [Ratio] 12.6 % Normal 11.0-15.0 [facility] Comment on above: Performed By: #### C BC #### [facility] [address] [place], [place] [id number] Maryse Foster Hematocrit (Bld) [Volume fraction] 35.5 % Critically low 36.0-48.0 [facility] Comment on above: Performed By: #### C BC #### [facility] [address] [id number] Maryse Foster Hemoglobin (Bld) [Mass/Vol] 11.4 g/dL Critically low 12.0-16.0 [facility] Comment on above: Performed By: #### C BC #### [facility] [address] [id number] Maryse Foster IG # 0.04 10e3/ul Critically high 0.00-0.03 [facility] Comment on above: Performed By: #### C BC #### [facility] [address] [place] [address] Maryse Foster IG % 0.5 % Normal 0.0-0.5 [facility] Comment on above: Performed By: #### C BC #### [facility] [address] [place] [address] Maryse Foster LYMPH # 1.1 103/ul Critically low 1.2-3.8 [facility] Comment on above: Performed By: #### C BC #### [facility] [address] [place] [address] Maryse Foster Lymphocytes/100 WBC (Bld) 14.3 % Critically low 20.5-60.0 [facility] Comment on above: Performed By: #### C BC #### [facility] [address] [place] [address] Maryse Foster MANUAL DIFF REQ NO Normal [facility] Comment on above: Performed By: #### C BC #### [facility] [address] [place] [address] Maryse Foster MCH (RBC) [Entitic mass] 31.9 pg Normal 26.7-34.0 [facility] Comment on above: Performed By: #### C BC #### [facility] [address] [place] [address] Maryse Foster MCHC (RBC) [Mass/Vol] 32.1 g/dL Normal 29.9-35.2 [facility] Comment on above: Performed By: #### C BC #### [facility] [address] [place] [address] Marysehumberto Foster MCV (RBC) [Entitic vol] 99.4 fL Critically high 81.0-99.0 [facility] Comment on above: Performed By: #### C BC #### [facility] [address] [place] [address] Marysehumberto Jerryen MONO # 0.4 103/ul Normal 0.3-0.8 [facility] Comment on above: Performed By: #### C BC #### [facility] [address] [place], [place] [id number] Marysehumberto Jerryen Monocytes/100 WBC (Bld) 5.3 % Normal 1.7-12.0 [facility] Comment on above: Performed By: #### C BC #### [facility] [address] [id number] Maryse Foster NEUT # 5.9 103/ul Normal 1.4-6.5 [facility] Comment on above: Performed By: #### C BC #### [facility] [address] [id number] Mayrse Foster Neutrophils/100 WBC (Bld) 79.8 % Critically high 43.0-75.0 [facility] Comment on above: Performed By: #### C BC #### [facility] [address] [id number] Maryse Foster Platelet mean volume (Bld) [Entitic vol] 11.3 fL Normal 9.5-13.5 [facility] Comment on above: Performed By: #### C BC #### [facility] [address] [place] [address] Maryse Foster PLT 160 103/ul Normal 150-450 [facility] Comment on above: Performed By: #### C BC #### [facility] [address] [place] [id number] Maryse Foster RBC 3.57 106/ul Critically low 4.20-5.40 [facility] Comment on above: Performed By: #### C BC #### [facility] [address] [id number] Maryse Foster WBC 7.3 103/ul Normal 4.0-11.0 [facility] Comment on above: Performed By: #### C BC #### [facility] [address] [place], [place] [address] Maryse Foster CULTURE URINEon 06-25-2020 CULTURE URINE Culture Observations: LINDA TO FOLLOW Isolate 1 Escherichia coli >100,000 CFU/mL OF Normal [facility] Comment on above: Performed By: #### U RCX ####[facility] [address] [place] [id number] Foster PROF CHEM 8 (BAS METB)on 03- 27-2021 Anion gap [Moles/Vol] 12.0 mmol/L Normal [facility] Comment on above: Performed By: #### B WELDER FITTER, BMP, HSTROPN ####[facility] [address] [place] [id number] Kristin Calcium [Mass/Vol] 9.7 mg/dL Normal 8.4-10.2 [facility] Comment on above: Performed By: #### B WELDER FITTER, BMP, HSTROPN ####[facility] [address] [place] [id number] Kristin Chloride [Moles/Vol] 110 mmol/L Critically high 98-107 [facility] Comment on above: Performed By: #### B WELDER FITTER, BMP, HSTROPN ####[facility] [address] [place], [place] [address]Gerken Kristin CO2 [Moles/Vol] 26.1 mmol/L Normal 22.0-30.0 [facility] Comment on above: Performed By: #### B WELDER FITTER, BMP, HSTROPN ####[facility] [address] [place], [place] [id number] Kristin Creatinine [Mass/Vol] 1.01 mg/dL Normal 0.52-1.04 [facility] Comment on above: Performed By: #### B WELDER FITTER, BMP, HSTROPN ####[facility] [address] [place], [place] [id number] Kristin EGFR-AF BENINESE >60 Normal >=60 [facility] Comment on above: Performed By: #### B WELDER FITTER, BMP, HSTROPN ####[facility] [address] [place], [place] [id number] Kristin EGFR-NON AF BENINESE 53 mL/min/1.73m2 Critically low >=60 [facility] Comment on above: Performed By: #### B WELDER FITTER, BMP, HSTROPN ####[facility] [address] [place] [id number] Kristin Glucose [Mass/Vol] 127 mg/dL Critically high 74-106 [facility] Comment on above: Performed By: #### B WELDER FITTER, BMP, HSTROPN ####[facility] [address] [place], [place] [address]Rihixv Kristin Potassium [Moles/Vol] 4.1 mmol/L Normal 3.4-5.0 [facility] Comment on above: Performed By: #### B WELDER FITTER, BMP, HSTROPN ####[facility] [address] [place], [place] [address]Dmvswj Kristin Sodium [Moles/Vol] 144 mmol/L Normal 137-145 [facility] Comment on above: Performed By: #### B WELDER FITTER, BMP, HSTROPN ####[facility] [address] [place], [place] [address]Rrdnpu Kristin Urea nitrogen [Mass/Vol] 36.0 mg/dL Critically high 7.0-17.0 [facility] Comment on above: Performed By: #### B WELDER FITTER, BMP, HSTROPN ####[facility] [address] [place] [id number] Kristin Urea nitrogen/Creatinin e [Mass ratio] 35.6 mg/mg Normal [facility] Comment on above: Performed By: #### B WELDER FITTER, BMP, HSTROPN ####[facility] [address] [place], [place] [address]Vywnkw Kristin TROPONIN, HIGH SENSITIVITYon 06-25-2020 HSTROP 8.0 pg/mL Normal 4.0-35.5 [facility] Comment on above: Result Comment: CUT- OFF POINTS HAVE BEEN ESTABLISHED BASED ON THE FOURTH UNIVERSAL DEFINITIONS OF MYOCARDIAL INFARCTION. THE UPPER REFERENCE LIMIT (URL) OF TROPONIN, DEFINED THE 99TH PERCENTILE OF cTnI DISTRIBUTION IN A REFERENCE POPULATION, HAS BEEN CONFIRMED THE DECISION THRESHOLD FOR LA DIAGNOSIS. Performed By: #### H STROPN #### [facility] [address] [place], [place] [address] Maryse Kristin HSTROP 7.1 pg/mL Normal 4.0-35.5 [facility] Comment on above: Result Comment: CUT- OFF POINTS HAVE BEEN ESTABLISHED BASED ON THE FOURTH UNIVERSAL DEFINITIONS OF MYOCARDIAL INFARCTION. THE UPPER REFERENCE LIMIT (URL) OF TROPONIN, DEFINED THE 99TH PERCENTILE OF cTnI DISTRIBUTION IN A REFERENCE POPULATION, HAS BEEN CONFIRMED THE DECISION THRESHOLD FOR LA DIAGNOSIS. Performed By: #### B WELDER FITTER, BMP, HSTROPN ####[facility] [address] [place], [place] [address]WtaewzMaryse Foster XR CHEST 1 Von 06-25-2020 XR CHEST 1 V EXAM: XR CHEST 1 V HISTORY: CHEST PAIN, UNSPECIFIED COMPARISON: Chest x-ray of 10/17/2018. TECHNIQUE: Single AP portable upright view of the chest is submitted for review. FINDINGS: The heart size is normal. No dense focal consolidation, pneumothorax or pleural effusion is seen. The visualized osseous structures appear unremarkable. IMPRESSION: No radiographic evidence for acute cardiopulmonary disease. Electronically authenticated by: ONEAL BATISTA Date: 2020-06-25 18:33 Normal [facility] CULTURE URINEon 05-08-2020 CULTURE URINE Culture Observations: LINDA to follow Isolate 1 Escherichia coli >100,000 cfu/ml of ORGANISM 1 Escherichia coli ANTIBIOTIC M.I.C RX STATUS Ampicillin >=32 R F Ampicillin/Sulbactam <=2 S F Piperacillin/Tazobac perales <=4 S F Cefazolin <=4 S F Ceftazidime <=1 S F Ceftriaxone <=1 S F Ertapenem <=0.5 S F Imipenem <=0.25 S F Amikacin <=2 S F Gentamicin <=1 S F Tobramycin <=1 S F Ciprofloxacin <=0.25 S F Levofloxacin <=0.12 S F Nitrofurantoin <=16 S F Trimethoprim/Sulfame thoxazole <=20 S F Normal [facility] Comment on above: Performed By: #### U RCX ####[facility] [address] [place], [place] [address]JnihmiMaryse Foster CBC AUTO DIFFon 05-06-2020 BASO # 0.0 103/ul Normal 0.0-0.1 [facility] Comment on above: Performed By: #### C BC #### [facility] [address] [place], [place] [address] Maryse Foster Basophils/100 WBC (Bld) 0.7 % Normal 0.2-2.0 [facility] Comment on above: Performed By: #### C BC #### [facility] [address] [place] [address] Maryse Kristin EO # 0.0 103/ul Normal 0.0-0.7 [facility] Comment on above: Performed By: #### C BC #### [facility] [address] [place] [address] Maryse Kristin Eosinophils/100 WBC (Bld) 1.0 % Normal 0.9-7.0 [facility] Comment on above: Performed By: #### C BC #### [facility] [address] [place] [address] Maryse Kristin Erythrocyte distribution width (RBC) [Ratio] 12.0 % Normal 11.0-15.0 [facility] Comment on above: Performed By: #### C BC #### [facility] [address] [place] [address] Maryse Kristin Hematocrit (Bld) [Volume fraction] 35.0 % Critically low 36.0-48.0 [facility] Comment on above: Performed By: #### C BC #### [facility] [address] [place] [address] Maryse Kristin Hemoglobin (Bld) [Mass/Vol] 11.2 g/dL Critically low 12.0-16.0 [facility] Comment on above: Performed By: #### C BC #### [facility] [address] [place] [address] Maryse Kristin IG # 0.02 10e3/ul Normal 0.00-0.03 [facility] Comment on above: Performed By: #### C BC #### [facility] [address] [place] [address] Maryse Kristin IG % 0.5 % Normal 0.0-0.5 [facility] Comment on above: Performed By: #### C BC #### [facility] [address] [place] [address] Maryse Kristin LYMPH # 1.6 103/ul Normal 1.2-3.8 [facility] Comment on above: Performed By: #### C BC #### [facility] [address] [place], [place] [id number] Maryse Foster Lymphocytes/100 WBC (Bld) 38.1 % Normal 20.5-60.0 [facility] Comment on above: Performed By: #### C BC #### [facility] [address] [place], [place] [id number] Maryse Foster MANUAL DIFF REQ NO Normal [facility] Comment on above: Performed By: #### C BC #### [facility] [address] [place], [place] [id number] Marysehumberto Jerryen MCH (RBC) [Entitic mass] 31.5 pg Normal 26.7-34.0 [facility] Comment on above: Performed By: #### C BC #### [facility] [address] [place], [place] [id number] Marysehumberto Foster MCHC (RBC) [Mass/Vol] 32.0 g/dL Normal 29.9-35.2 [facility] Comment on above: Performed By: #### C BC #### [facility] [address] [place] [address] Marysehumberto Jerryen MCV (RBC) [Entitic vol] 98.6 fL Normal 81.0-99.0 [facility] Comment on above: Performed By: #### C BC #### [facility] [address] [place], [place] [id number] Maryse Kristin MONO # 0.5 103/ul Normal 0.3-0.8 [facility] Comment on above: Performed By: #### C BC #### [facility] [address] [place] [address] Maryse Kristin Monocytes/100 WBC (Bld) 11.4 % Normal 1.7-12.0 [facility] Comment on above: Performed By: #### C BC #### [facility] [address] [place], [place] [id number] Maryse Kristin NEUT # 2.0 103/ul Normal 1.4-6.5 [facility] Comment on above: Performed By: #### C BC #### [facility] [address] [place], [place] [id number] Maryse Kristin Neutrophils/100 WBC (Bld) 48.3 % Normal 43.0-75.0 [facility] Comment on above: Performed By: #### C BC #### [facility] [address] [place] [address] Maryse Foster Platelet mean volume (Bld) [Entitic vol] 10.8 fL Normal 9.5-13.5 [facility] Comment on above: Performed By: #### C BC #### [facility] [address] [place] [address] Maryse Foster PLT 165 103/ul Normal 150-450 [facility] Comment on above: Performed By: #### C BC #### [facility] [address] [place] [address] Maryse Foster RBC 3.55 106/ul Critically low 4.20-5.40 [facility] Comment on above: Performed By: #### C BC #### [facility] [address] [place] [address] Maryse Foster WBC 4.2 103/ul Normal 4.0-11.0 [facility] Comment on above: Performed By: #### C BC #### [facility] [address] [place], [place] [id number] Maryse Foster CT CSPINE WO CONon 1 [address] CSPINE WO CON CT CSPINE WO CON INDICATION: 80 years old; Female . CLINICAL HISTORY: Pain fall from wheelchair. Neck pain. TECHNIQUE: CT imaging of the cervical spine was performed. IV contrast: None. Dose reduction techniques were achieved by using automated exposure control and/or adjustment of mA and/or kV according to patient size and/or use of iterative reconstruction technique. COMPARISON: None available. FINDINGS: POSTOPERATIVE CHANGES: None. ALIGNMENT: There is nonspecific straightening of the normal cervical curve. No subluxation or bony displacement is seen. COMPRESSION FRACTURES: No fracture or vertebral body collapse is appreciated. PREVERTEBRAL SOFT TISSUES: Normal. CRANIOCERVICAL JUNCTION: There is a normal relationship of the occipital condyles, lateral masses of C1, and articular surfaces of C2. The base of the dens and body of C2 are intact. The patient is rotated. POSTERIOR FOSSA: Cerebellar tonsils are above the foramen magnum. Disc levels: C2-C3: No focal disc herniation or bulging is seen. Facet degeneration is present on the left. C3-C4: No focal disc herniation or bulging is seen. Facet degeneration is seen on the left with uncovertebral joint degeneration. Left neural foraminal narrowing is seen. C4-C5: Disc space narrowing, disc bulging, and endplate osteophyte formation is seen with uncovertebral joint degeneration. No focal disc herniation. Central canal patent. Neural foramina narrowed but patent. C5-C6: Anterior osteophyte formation. No focal disc herniation or bulging. Bilateral facet degeneration. Central canal is patent. Neural foramina are narrowed but patent. C6-C7: Disc space narrowing. Disc bulging and endplate osteophytes. No focal disc herniation. Central canal and neural foramina are patent. C7-T1: Allowing for beam hardening artifacts, the central canal and neural foramina are patent. UPPER THORACIC SPINE: Allowing for beam hardening artifacts, the central canal and neural foramina are patent. OTHER: Vascular calcifications are noted. IMPRESSION: 1. No fracture or bone displacement. 2. Cervical spondylosis, without stenosis. 3. Vascular calcification. Electronically authenticated by: MOSES CRISOSTOMO Date: 2020-05-06 01:15 Normal [facility] CT FACIAL BONES WO CONon CT FACIAL BONES WO CON EXAMINATION: CT FACIAL BONES WO CON HISTORY: Status post fall. COMPARISON: None. TECHNIQUE: CT examination of the facial bones without IV contrast. Coronal and sagittal reformations were performed. Dose reduction techniques were achieved by using automated exposure control and/or adjustment of mA and/or kV according to patient size and/or use of iterative reconstruction technique. FINDINGS: No acute facial fracture or dislocation is seen. The visualized paranasal sinuses and mastoid air cells are clear. The orbits and globes are unremarkable. No acute intracranial abnormality is seen in the imaged portions of the brain. The patient is edentulous. IMPRESSION: 1. No acute facial fracture or dislocation is seen. Electronically authenticated by: Eliezer MANJARREZ Date: 2020-05-06 01:06 Normal [facility] CT HEAD WO CONon 05-06-2020 CT HEAD WO CON EXAMINATION: CT HEAD WO CON HISTORY: Pain. COMPARISON: CT head examination dated 10/17/2018. TECHNIQUE: CT examination of the head without IV contrast. Dose reduction techniques were achieved by using automated exposure control and/or adjustment of mA and/or kV according to patient size and/or use of iterative reconstruction technique. FINDINGS: There is generalized volume loss. There is decreased attenuation within the periventricular, deep, and subcortical white matter suggestive of chronic microvascular ischemic changes. There is a remote left basal ganglia lacunar infarct. There is no evidence of intracranial hemorrhage, mass, or midline shift. No extra-axial fluid collection is seen. The visualized paranasal sinuses and mastoid air cells are clear. No skull abnormalities are identified. IMPRESSION: 1. No acute intracranial abnormality. Electronically authenticated by: Eliezer MANJARREZ Date: 2020-05-06 01:04 Normal [facility] CT LSPINE WO CONon 1 CT LSPINE WO CON EXAMINATION: CT LSPINE WO CON HISTORY: Status post fall. COMPARISON: None. TECHNIQUE: CT examination of the lumbar spine without IV contrast. Coronal and sagittal reformations were performed. Dose reduction techniques were achieved by using automated exposure control and/or adjustment of mA and/or kV according to patient size and/or use of iterative reconstruction technique. FINDINGS: There are 5 lumbar type vertebral bodies. No acute fracture or subluxation is seen. The vertebral body heights are preserved. There is approximately 0.6 cm of L4 on L5 anterolisthesis which is felt to be due to degenerative changes. Otherwise, the vertebral elements are in anatomic alignment. There is mild to moderate degenerative disc disease at L4-L5. There are multilevel degenerative changes including endplate osteophytes, degenerative facet arthropathy, and uncovertebral hypertrophy. There is moderate bilateral neural foraminal narrowing at L3-L4 secondary to a posterior disc osteophyte complex and degenerative facet arthropathy. There is severe right neural foraminal narrowing at L4-L5 secondary to the anterolisthesis, a diffuse disc bulge, and degenerative facet arthropathy. There is mild bilateral neural foraminal narrowing at L5-S1 secondary to a diffuse disc bulge and degenerative facet arthropathy. There is mild spinal canal stenosis at L3-L4 secondary to a posterior disc osteophyte complex, degenerative facet arthropathy, and ligamentum flavum hypertrophy. There is mild spinal canal stenosis at L4-L5 secondary to a diffuse disc bulge and ligamentum flavum hypertrophy. There is advanced atherosclerotic disease. There are nonobstructive right renal calculi measuring up to 1.3 x 0.6 cm in the right renal pelvis. The patient appears to be status post cholecystectomy. Splenic calcifications are suggestive of prior granulomatous disease. IMPRESSION: 1. Degenerative changes of the lumbar spine as described with no acute fracture or subluxation seen. 2. Nonobstructive right renal calculi. Electronically authenticated by: Eliezer MANJARREZ Date: 2020-05-06 01:11 Normal [facility] ER URINE PROFILEon 1 Bilirubin Ql (U) Negative Normal NEGATIVE The [facility] Comment on above: Performed By: #### NELDA ARNOLD #### [facility] [address] [place] [address] Maryse Kristin Clarity (U) SL CLOUDY Abnormal CLEAR [facility] Comment on above: Performed By: #### NELDA ARNOLD #### [facility] [address] [place] [address] Maryse Kristin Color (U) DK. ORANGE Abnormal YELLOW [facility] Comment on above: Performed By: #### NELDA ARNOLD #### [facility] [address] [place] [address] Maryse Kristin ERUAHD A micrscopic examination will be performed if indicated. Normal [facility] Comment on above: Performed By: #### NELDA ARNOLD #### [facility] [address] [place] [address] Maryse Kristin Glucose Ql (U) Negative Normal NEGATIVE The [place] Comment on above: Performed By: #### NELDA ARNOLD #### [facility] [address] [place] [address] Maryse Kristin Hemoglobin Ql (U) LARGE Abnormal NEGATIVE [facility] Comment on above: Performed By: #### NELDA ARNOLD #### [facility] [address] [place] [address] Maryse Kristin Ketones Ql (U) Negative Normal NEGATIVE The [facility] Comment on above: Performed By: #### NELDA ARNOLD #### [facility] [address] [place] [address] Maryse Kristin LEUKOCYTES SMALL Abnormal NEGATIVE [facility] Comment on above: Performed By: #### LUISA ARNOLDRO #### [facility] [address] [place], [place] [address] Maryse Kristin Nitrite Ql (U) Positive Abnormal NEGATIVE [facility] Comment on above: Performed By: #### LUISA ARNOLDRO #### [facility] [address] [place], [place] [address] Maryse Kristin pH (U) 6.0 [pH] Normal 5-9 [facility] Comment on above: Performed By: #### LUISA ARNOLDRO #### [facility] [address] [place] [address] Maryse Kristin Protein (U) [Mass/Vol] 30 mg/dL Abnormal NEGATIVE/ TRACE [facility] Comment on above: Performed By: #### NELDA ARNOLD #### [facility] [address] [place], [place] [address] Marysehumberto Foster SPEC GRAVITY 1.020 Normal 1.005-<=1.025 [facility] Comment on above: Performed By: #### NELDA ARNOLD #### [facility] [address] [place] [address] Maryse Kristin UR MICRO IND INDICATED Normal [facility] Comment on above: Performed By: #### LUISA ARNOLDRO #### [facility] [address] [place] [address] Marysehumberto Foster Urobilinogen Qn (U) 0.2 {Mazin'U}/dL Normal 0.2 - 1.0 [facility] Comment on above: Performed By: #### LUISA ARNOLDRO #### [facility] [address] [place] [address] Maryse Foster PROF 14(COMP METB)on 021 Albumin [Mass/Vol] 4.3 g/dL Normal 3.5-5.0 [facility] Comment on above: Performed By: #### C MP #### [facility] [address] [place] [address] Maryse Kristin Albumin/Globulin [Mass ratio] 1.3 {ratio} Normal [facility] Comment on above: Performed By: #### C MP #### [facility] [address] [place] [id number] Maryse Kristin ALP [Catalytic activity/Vol] 60 U/L Normal 38-126 [facility] Comment on above: Performed By: #### C MP #### [facility] [address] [place] [id number] Maryse Kristin ALT [Catalytic activity/Vol] 12 U/L Normal 9-52 [facility] Comment on above: Performed By: #### C MP #### [facility] [address] [place] [address] Maryse Kristin Anion gap [Moles/Vol] 16.6 mmol/L Normal [facility] Comment on above: Performed By: #### C MP #### [facility] [address] [place] [address] Maryse Kristin AST [Catalytic activity/Vol] 14 U/L Normal 14-36 [facility] Comment on above: Performed By: #### C MP #### [facility] [address] [place] [address] Maryse Kristin Bilirubin [Mass/Vol] 0.2 mg/dL Normal 0.2-1.3 [facility] Comment on above: Performed By: #### C MP #### [facility] [address] [place] [address] Maryse Kristin Calcium [Mass/Vol] 10.5 mg/dL Critically high 8.4-10.2 [facility] Comment on above: Performed By: #### C MP #### [facility] [address] [place], [place] [id number] Maryse Kristin Chloride [Moles/Vol] 109 mmol/L Critically high 98-107 [facility] Comment on above: Performed By: #### C MP #### [facility] [address] [place], [place] [id number] Maryse Kristin CO2 [Moles/Vol] 22.5 mmol/L Normal 22.0-30.0 [facility] Comment on above: Performed By: #### C MP #### [facility] [address] [place] [id number] Maryse Kristin Creatinine [Mass/Vol] 0.96 mg/dL Normal 0.52-1.04 [facility] Comment on above: Performed By: #### C MP #### [facility] [address] [place] [id number] Maryse Kristin EGFR-AF BENINESE >60 Normal >=60 [facility] Comment on above: Performed By: #### C MP #### [facility] [address] [place] [address] Maryse Kristin EGFR-NON AF BENINESE 56 mL/min/1.73m2 Critically low >=60 [facility] Comment on above: Performed By: #### C MP #### [facility] [address] [place] [address] Maryse Kristin Globulin (S) [Mass/Vol] 3.4 g/dL Normal [facility] Comment on above: Performed By: #### C MP #### [facility] [address] [place] [address] Maryse Kristin Glucose [Mass/Vol] 111 mg/dL Critically high 74-106 [facility] Comment on above: Performed By: #### C MP #### [facility] [address] [place] [address] Maryse Kristin Potassium [Moles/Vol] 3.1 mmol/L Critically low 3.4-5.0 [facility] Comment on above: Performed By: #### C MP #### [facility] [address] [address] Maryse Kristin Protein [Mass/Vol] 7.7 g/dL Normal 6.1-8.2 [facility] Comment on above: Performed By: #### C MP #### [facility] [address] [place] [address] Maryse Kristin Sodium [Moles/Vol] 145 mmol/L Normal 137-145 [facility] Comment on above: Performed By: #### C MP #### [facility] [address] [place] [address] Maryse Kristin Urea nitrogen [Mass/Vol] 26.0 mg/dL Critically high 7.0-17.0 [facility] Comment on above: Performed By: #### C MP #### [facility] [address] [place], [place] [id number] Maryse Kristin Urea nitrogen/Creatinin e [Mass ratio] 27.1 mg/mg Normal [facility] Comment on above: Performed By: #### C MP #### [facility] [address] [place], [place] [id number] Maryse Kristin URINE MICROSCOPIC ONLYon BACTERIA LARGE Abnormal NONE SEEN [facility] Comment on above: Performed By: #### Nguyễn JARAMILLO UMICRO #### [facility] [address] [place] [address] Maryse Kristin Bacteria identified Cx Nom (U) INDICATED Normal [facility] Comment on above: Performed By: #### Nguyễn JARAMILLO UMICRO #### [facility] [address] [place] [address] Maryse Kristin CAST NONE SEEN Normal NONE SEEN [facility] Comment on above: Performed By: #### Nguyễn JARAMILLO UMICRO #### [facility] [address] [place] [address] Maryse Kristin Crystals LM Nom (Urine sed) NONE SEEN Normal NONE SEEN [facility] Comment on above: Performed By: #### Nguyễn JARAMILLO UMICRO #### [facility] [address] [place] [address] Maryse Kristin Epithelial cells LM Ql (Urine sed) NONE SEEN Normal NONE SEEN /RARE [facility] Comment on above: Performed By: #### Nguyễn JARAMILLO UMICRO #### [facility] [address] [place] [address] Maryse Kristin MUCOUS NONE SEEN Normal NONE SEEN [facility] Comment on above: Performed By: #### Nguyễn JARAMILLO UMICRO #### [facility] [address] [place], [place] [id number] Maryse Kristin RBC NONE SEEN Abnormal 0-2 [facility] Comment on above: Performed By: #### Nguyễn JARAMILLO UMICRO #### [facility] [address] [place], [place] [address] Maryse Foster WBC 20-50 Abnormal NONE SEEN [facility] Comment on above: Performed By: #### NELDA ARNOLD #### [facility] [address] [place], [place] [address] Marsye Foster Encounters Encounter Date Encounter Type Care Provider Facility Start: 09-01-2020 End: 09-01-[address] CHRIS LEIJA Facility:[facility] Start: 06-25-2020 End: 06-26-[address] NICK MORELAND Facility:[facility] Start: 05-06-2020 End: 05-06-[address] CHRIS LEIJA Facility:[facility] Payers Date Payer Category Payer Medicaid [id number] 1957 Medicare [id number] 1940 Unknown [id number] 1940 Unknown [id number] 1940 Unknown [id number] Summary Purpose Family History No Family History Records FoundNo Family History Records Found Advance Directives No Advanced Directives Records FoundNo Advanced Directives Records Found Additional Source Comments INFORMATION SOURCE (unrecogn ized section and content) DATE CREATED AUTHOR 09/10/2020 [facility] DATE CREATED AUTHOR AUTHOR'S ORGANIZ ATION 04/24/2021 [facility] FOR RECORDS PERTAINING TO PATIENTS WHO ARE OR HAVE BEEN ENROLLED IN A CHEMICAL DEPENDENCY/SUBSTANCEABUSE PROGRAM, SOME INFORMATION MAY BE OMITTED. This clinical summary was aggregated from multiple sources. Caution should be exercised in using it in the provision of clinical care. This summary normalizes information from multiple sources, and as a consequence, information in this document may materially change the coding, format and clinical context of patient data. In addition, data may be omitted in some cases. CLINICAL DECISIONS SHOULD BE BASED ON THE PRIMARY CLINICAL RECORDS. [facility] [employer] provides no warranty or guarantee of the accuracy or completeness of information in this document.
--- NOTE | 2024-05-21 21:46 | ECG_ITS ---
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
--- NOTE | 2024-05-21 21:47 | ECG_ITS ---
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
--- NOTE | 2024-05-21 21:51 | ECG_ITS ---
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
[2024-05-21 21:55] LABS: PCO2 VBG 57.1 mmHg (40.0-52.0); pH VBG 7.318 (7.330-7.430)
[2024-05-21 21:58] LABS: Basophils Percent Auto 0.4 % (0.2-2.0); Eosinophils Percent Auto 0.5 % (0.9-7.0); Hemoglobin 10.8 g/dL (12.0-16.0); Immature Granulocytes Abs Auto 0.03 10^3/uL (0.00-0.03); Immature Granulocytes Pct Auto 0.4 % (0.0-0.5); Lymphocytes Absolute Auto 1.4 10^3/uL (1.2-3.8); Lymphocytes Percent Auto 18.5 % (20.5-60.0); Mean Corpuscular HGB Conc 31.8 g/dL (29.9-35.2); Mean Corpuscular Hemoglobin 30.9 pg (26.7-34.0); Mean Corpuscular Volume 97.4 fL (81.0-99.0); Mean Platelet Volume 9.7 fL (9.5-13.5); Monocytes Absolute Auto 0.5 10^3/uL (0.3-0.8); Monocytes Percent Auto 6.7 % (1.7-12.0); Neutrophils Absolute Auto 5.6 10^3/uL (1.4-6.5); Neutrophils Percent Auto 73.5 % (43.0-75.0); Platelet Count 311 10^3/uL (150-450); Red Blood Count 3.49 10^6/uL (4.20-5.40); Red Cell Distribution Width 13.1 % (11.0-15.0); White Blood Count 7.6 10^3/uL (4.0-11.0)
--- NOTE | 2024-05-21 21:59 | PC.NURSE ---
Patient arrives via EMS from [facility]. Nurse from the facility called report, stated that at 1900, the patient was awake, eating her dinner and at her baseline. At 1999, staff was going to check on the patient and they found her unresponsive but with normal vital signs. Patient is DNR-CC and on hospice, nursing staff discussed the patient's situation with her physician and the hospice nurse who both stated that the patient did not need to come to the ED, however her daughter and POA wanted her evaluated. On arrival, patient is staring with no response to voice or pain. She has tremors per her baseline.
[2024-05-21 22:15] LABS: INR 1.04; Partial Thromboplastin Time 24.9 sec (22.3-36.2)
[2024-05-21 22:27] LABS: Alanine Aminotransferase 18 U/L (14-59); Albumin Level 3.6 g/dL (3.4-5.0); Alkaline Phosphatase 85 U/L (46-116); Anion Gap 11.5; Aspartate Amino Transferase 39 U/L (15-37); BUN Creatinine Ratio 26.5; Bilirubin Total 0.2 mg/dL (0.2-1.0); Calcium 9.3 mg/dL (8.5-10.1); Carbon Dioxide 29.9 mmol/L (21.0-32.0); Chloride 108 mmol/L (98-107); Estimated GFR (African America >60 (>=60 mL/min/1.73m^2); Estimated GFR (Non-African Ame 52 (>=60 mL/min/1.73m^2); Globulin 3.7 g/dL; Glucose 139 mg/dL (74-106); Potassium 4.4 mmol/L (3.5-5.1); Sodium 145 mmol/L (136-145); Thyroid Stimulating Hormone 3.063 uIU/mL (0.358-3.740); Total Protein 7.3 g/dL (6.4-8.2)
[2024-05-21] MEDS: METOPROLOL TARTRATE 5 MG/5 ML VIAL IVP (22:36)
[2024-05-21] MEDS: LORAZEPAM 2 MG/ML VIAL 1 MG IV (22:36)
[2024-05-21 22:41] LABS: Troponin I High Sensitivity 199.9 pg/mL (4.0-51.3)
--- NOTE | 2024-05-21 22:48 | PC.NURSE ---
Patient now responding to verbal stimuli, is able to turn her head and make eye contact when she hears her name. She made effort to berry picker her arms when asked. Not able to speak at this time, unsure what her ability to speak is at baseline
--- NOTE | 2024-05-21 23:09 | ECG_ITS ---
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
[2024-05-21] MEDS: 0.9 % SODIUM CHLORIDE 500 ML IV (23:20)
[2024-05-22] VITALS (40 sets, daily range): BP systolic 105–166; BP diastolic 56–86; PULSE 55–150; TEMP 36.1–37.2; O2SAT 94–100; BMI 22.2
[2024-05-22] MEDS: DIGOXIN 500 MCG/2 ML AMPUL IV (00:20)
--- OUTSIDE RECORDS SUMMARY | 2024-05-22 02:39 | XMS_ITS | CCD ---
Author Organization [facility] Care Team Providers Care Aviation Operations Specialist Name Role Phone MERLY, DR NICK Juárez Attending Unavailabl nguyễn DUNHAMECK, DR NICK Juárez Consulting Unavailabl e REINECK, DR NICK Juárez Admitting Unavailabl e VALONE, DR PEREZ Primary Care Unavailable AHDOOTONEAL Consulting Unavailable GAVI, ELIANA Consulting Unavailable VALONE, DR PEREZ Attending Unavailable VALONE, DR PEREZ Consulting Unavailable VALONE, DR PEREZ Primary Care [...] (1 source) hydrOXYzine Drug Allergy 01-16-2013 [facility] busPIRone (1 source) busPIRone Drug Allergy 11-15-2016 [facility] NSAIDs (1 source) Ibuprofen Drug Allergy 01-16-2013 [facility] Penicillins (antibiotic) (1 source) Penicillins Drug Allergy 01-16-2013 [facility] Problems Active Problems Problem Classification [...] 05-12-2020 Chronic Other aftercare (5 sources) 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; Translations: [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 DRUG THERAPY] Onset: 06-28-2020 Episodic Other aftercare (1 source) 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 Performed By: #### C UU, ADDONUAPLUS #### [facility] [address] [place] [address] [place] Bilirubin,Urine Normal Negative [facility] Comment on above: Order Comment: Name Collection Type:: Clean-Voided Midstream Result Comment: Unab le to obtain accurate result due to color interference. Performed By: #### C UU, ADDONUAPLUS #### [facility] [address] [place] [address] [place] Calcium Oxalate Crystals,Urine 2+ Normal [facility] Comment on above: Order Comment: Name Collection Type:: Clean-Voided Midstream Performed By: #### C UU, ADDONUAPLUS #### [address] Color (U) [place] Critically abnormal Yellow [facility] Comment on above: Order Comment: Name Collection Type:: Clean-Voided Midstream Performed By: #### C UU, ADDONUAPLUS #### [facility] [address] [place] [address] [place] Glucose Ql (U) Normal Normal [facility] Comment on above: Order Comment: Name Collection Type:: Clean-Voided Midstream Result Comment: Unab le to obtain accurate result due to color interference. Performed By: #### C UU, ADDONUAPLUS #### [address] Ketones Ql (U) Normal Negative [facility] Comment on above: Order Comment: Name Collection Type:: Clean-Voided Midstream Result Comment: Unab le to obtain accurate result due to color interference. Performed By: #### C UU, ADDONUAPLUS #### [address] Leukocyte esterase Test strip Ql (U) Normal Negative [facility] Comment on above: Order Comment: Name Collection Type:: Clean-Voided Midstream Result Comment: Unab le to obtain accurate result due to color interference. Performed By: #### C UU, ADDONUAPLUS #### [place] [address] [place] Nitrite,Urine Normal Negative [facility] Comment on above: Order Comment: Name Collection Type:: Clean-Voided Midstream Result Comment: Unab le to obtain accurate result due to color interference. Performed By: #### C UU, ADDONUAPLUS #### [place] [address] [place] Occult Blood,Urine Normal Negative [facility] Comment on above: Order Comment: Name Collection Type:: Clean-Voided Midstream Result Comment: Unab le to obtain accurate result due to color interference. Performed By: #### C UU, ADDONUAPLUS #### [place] [address] [place] pH,Urine Normal 5.0-9.0 [facility] Comment on above: Order Comment: Name Collection Type:: Clean-Voided Midstream Result Comment: Unab le to obtain accurate result due to color interference. Performed By: #### C UU, ADDONUAPLUS #### [place] [address] [place] Protein,Urine Normal Negative [facility] Comment on above: Order Comment: Name Collection Type:: Clean-Voided Midstream Result Comment: Unab le to obtain accurate result due to color interference. Performed By: #### C UU, ADDONUAPLUS #### [address] RBC,Urine 20-49 High 0-4 [facility] Comment on above: Order Comment: Name Collection Type:: Clean-Voided Midstream Performed By: #### C UU, ADDONUAPLUS #### [address] Specificy [place],Urine 1.015 Normal 1.001-1.030 [facility] Comment on above: Order Comment: Name Collection Type:: Clean-Voided Midstream Performed By: #### C UU, ADDONUAPLUS #### [address] Squamous Epithelial Cell,Urine None Seen Normal 0-2 [facility] Comment on above: Order Comment: Name Collection Type:: Clean-Voided Midstream Performed By: #### C UU, ADDONUAPLUS #### [address] Urobilinogen,Urine Normal Normal [facility] Comment on above: Order Comment: Name Collection Type:: Clean-Voided Midstream Result Comment: Unab le to obtain accurate result due to color interference. Performed By: #### C UU, ADDONUAPLUS #### [address] WBC,Urine 20-49 High 0-4 [facility] Comment on above: Order Comment: Name Collection Type:: Clean-Voided Midstream Performed By: #### C UU, ADDONUAPLUS #### [address] Urine Cultureon 11-14-2020 Bacteria identified Cx Nom (U) ORGANISM: Escherichia coli (O:ESCCOL) [place] Count >100,000 Aerobic LINDA Charge (NUC86) ----- [...] RESISTANT TO ALL B-LACTAM DRUGS. PERFORMED BY: [place] [address] PATHOLOGIST EXTENSION EDUCATOR MOSHE SERVIN M.D. Normal [facility] Comment on above: Performed By: #### C UU, ADDONUAPLUS #### [facility] [address] [place] [address] AMMONIAon 09-01-2020 Ammonia (P) [Moles/Vol] 28 umol/L Normal 10-30 [facility] Comment on above: Performed By: #### A MM ####[facility] [address] [place] [address] BNPon 06-25-2020 Natriuretic peptide B (Bld) [Mass/Vol] 329.0 pg/mL Normal <=1,800.0 [facility] Comment on above: Performed By: #### B SCHOOL STANDARDS COACH, BMP, HSTROPN ####[facility] [address] [place] [address] CBC AUTO DIFFon 06-25-2020 BASO # 0.0 103/ul Normal 0.0-0.1 [facility] Comment on above: Performed By: #### C BC #### [facility] [address] [place], [place] [address] Maryse Foster Basophils/100 WBC (Bld) 0.1 % Critically low 0.2-2.0 [facility] Comment on above: Performed By: #### C BC #### [facility] [address] [place] [id number] Maryse Foster EO # 0.0 103/ul Normal 0.0-0.7 [facility] Comment on above: Performed By: #### C BC #### [facility] [address] [place] [id number] Maryse Foster Eosinophils/100 WBC (Bld) 0.0 % Critically low 0.9-7.0 [facility] Comment on above: Performed By: #### C BC #### [facility] [address] [place] [address] Maryse Foster Erythrocyte distribution width (RBC) [Ratio] 12.6 % Normal 11.0-15.0 [facility] Comment on above: Performed By: #### C BC #### [facility] [address] [place], [place] [address] Maryse Foster Hematocrit (Bld) [Volume fraction] 35.5 % Critically low 36.0-48.0 [facility] Comment on above: Performed By: #### C BC #### [facility] [address] [place] [phone] Maryse Foster Hemoglobin (Bld) [Mass/Vol] 11.4 g/dL Critically low 12.0-16.0 [facility] Comment on above: Performed By: #### C BC #### [facility] [address] [place] [id number] Maryse Foster IG # 0.04 10e3/ul Critically high 0.00-0.03 [facility] Comment on above: Performed By: #### C BC #### [facility] [address] [place] [address] Maryse Foster IG % 0.5 % Normal 0.0-0.5 [facility] Comment on above: Performed By: #### C BC #### [facility] [address] [place] [address] Maryse Foster LYMPH # 1.1 103/ul Critically low 1.2-3.8 [facility] Comment on above: Performed By: #### C BC #### [facility] [address] [place] [address] Maryse Foster Lymphocytes/100 WBC (Bld) 14.3 % Critically low 20.5-60.0 [facility] Comment on above: Performed By: #### C BC #### [facility] [address] [place] [address] Maryse Foster MANUAL DIFF REQ NO Normal [facility] Comment on above: Performed By: #### C BC #### [facility] [address] [place] [address] Maryse Foster MCH (RBC) [Entitic mass] 31.9 pg Normal 26.7-34.0 [facility] Comment on above: Performed By: #### C BC #### [facility] [address] [place] [address] Maryse Foster MCHC (RBC) [Mass/Vol] 32.1 g/dL Normal 29.9-35.2 [facility] Comment on above: Performed By: #### C BC #### [facility] [address] [place] [address] Marysehumberto Foster MCV (RBC) [Entitic vol] 99.4 fL Critically high 81.0-99.0 [facility] Comment on above: Performed By: #### C BC #### [facility] [address] [place] [address] Marysehumberto Jerryen MONO # 0.4 103/ul Normal 0.3-0.8 [facility] Comment on above: Performed By: #### C BC #### [facility] [address] [place], [place] [address] Marysehumberto Jerryen Monocytes/100 WBC (Bld) 5.3 % Normal 1.7-12.0 [facility] Comment on above: Performed By: #### C BC #### [facility] [address] [place] [phone] Maryse Foster NEUT # 5.9 103/ul Normal 1.4-6.5 [facility] Comment on above: Performed By: #### C BC #### [facility] [address] [place] [phone] Maryse Foster Neutrophils/100 WBC (Bld) 79.8 % Critically high 43.0-75.0 [facility] Comment on above: Performed By: #### C BC #### [facility] [address] [place] [phone] Maryse Foster Platelet mean volume (Bld) [Entitic vol] 11.3 fL Normal 9.5-13.5 [facility] Comment on above: Performed By: #### C BC #### [facility] [address] [place] [address] Maryse Foster PLT 160 103/ul Normal 150-450 [facility] Comment on above: Performed By: #### C BC #### [facility] [address] [place] [phone] Maryse Foster RBC 3.57 106/ul Critically low 4.20-5.40 [facility] Comment on above: Performed By: #### C BC #### [facility] [address] [place] [phone] Maryse Foster WBC 7.3 103/ul Normal 4.0-11.0 [facility] Comment on above: Performed By: #### C BC #### [facility] [address] [place], [place] [address] Maryse Foster CULTURE URINEon 06-25-2020 CULTURE URINE Culture Observations: LINDA TO FOLLOW Isolate 1 Escherichia coli >100,000 CFU/mL OF Normal [facility] Comment on above: Performed By: #### U RCX ####[facility] [address] [place] [id number] Foster PROF CHEM 8 (BAS METB)on 03- 27-2021 Anion gap [Moles/Vol] 12.0 mmol/L Normal [facility] Comment on above: Performed By: #### B SCHOOL STANDARDS COACH, BMP, HSTROPN ####[facility] [address] [place] [phone] Kristin Calcium [Mass/Vol] 9.7 mg/dL Normal 8.4-10.2 [facility] Comment on above: Performed By: #### B SCHOOL STANDARDS COACH, BMP, HSTROPN ####[facility] [address] [place] [phone] Kristin Chloride [Moles/Vol] 110 mmol/L Critically high 98-107 [facility] Comment on above: Performed By: #### B SCHOOL STANDARDS COACH, BMP, HSTROPN ####[facility] [address] [place], [place] [address]Gerken Kristin CO2 [Moles/Vol] 26.1 mmol/L Normal 22.0-30.0 [facility] Comment on above: Performed By: #### B SCHOOL STANDARDS COACH, BMP, HSTROPN ####[facility] [address] [place], [place] [address]Gerken Kristin Creatinine [Mass/Vol] 1.01 mg/dL Normal 0.52-1.04 [facility] Comment on above: Performed By: #### B SCHOOL STANDARDS COACH, BMP, HSTROPN ####[facility] [address] [place], [place] [address]Gerken Kristin EGFR-AF BRAZILIAN >60 Normal >=60 [facility] Comment on above: Performed By: #### B SCHOOL STANDARDS COACH, BMP, HSTROPN ####[facility] [address] [place], [place] [address]Gerken Kristin EGFR-NON AF BRAZILIAN 53 mL/min/1.73m2 Critically low >=60 [facility] Comment on above: Performed By: #### B SCHOOL STANDARDS COACH, BMP, HSTROPN ####[facility] [address] [place] [phone] Kristin Glucose [Mass/Vol] 127 mg/dL Critically high 74-106 [facility] Comment on above: Performed By: #### B SCHOOL STANDARDS COACH, BMP, HSTROPN ####[facility] [address] [place], [place] [address]Mgwxsw Kristin Potassium [Moles/Vol] 4.1 mmol/L Normal 3.4-5.0 [facility] Comment on above: Performed By: #### B SCHOOL STANDARDS COACH, BMP, HSTROPN ####[facility] [address] [place], [place] [address]Ljiogm Kristin Sodium [Moles/Vol] 144 mmol/L Normal 137-145 [facility] Comment on above: Performed By: #### B SCHOOL STANDARDS COACH, BMP, HSTROPN ####[facility] [address] [place], [place] [address]Tdxftc Kristin Urea nitrogen [Mass/Vol] 36.0 mg/dL Critically high 7.0-17.0 [facility] Comment on above: Performed By: #### B SCHOOL STANDARDS COACH, BMP, HSTROPN ####[facility] [address] [place] [phone] Kristin Urea nitrogen/Creatinin e [Mass ratio] 35.6 mg/mg Normal [facility] Comment on above: Performed By: #### B SCHOOL STANDARDS COACH, BMP, HSTROPN ####[facility] [address] [place], [place] [address]Gzewqj Kristin TROPONIN, HIGH SENSITIVITYon 06-25-2020 HSTROP 8.0 pg/mL Normal 4.0-35.5 [facility] Comment on above: Result Comment: CUT- OFF POINTS HAVE BEEN ESTABLISHED BASED ON THE FOURTH UNIVERSAL DEFINITIONS OF MYOCARDIAL INFARCTION. THE UPPER REFERENCE LIMIT (URL) OF TROPONIN, DEFINED THE 99TH PERCENTILE OF cTnI DISTRIBUTION IN A REFERENCE POPULATION, HAS BEEN CONFIRMED THE DECISION THRESHOLD FOR ND DIAGNOSIS. Performed By: #### H STROPN #### [facility] [address] [place], [place] [address] Maryse Kristin HSTROP 7.1 pg/mL Normal 4.0-35.5 [facility] Comment on above: Result Comment: CUT- OFF POINTS HAVE BEEN ESTABLISHED BASED ON THE FOURTH UNIVERSAL DEFINITIONS OF MYOCARDIAL INFARCTION. THE UPPER REFERENCE LIMIT (URL) OF TROPONIN, DEFINED THE 99TH PERCENTILE OF cTnI DISTRIBUTION IN A REFERENCE POPULATION, HAS BEEN CONFIRMED THE DECISION THRESHOLD FOR ND DIAGNOSIS. Performed By: #### B SCHOOL STANDARDS COACH, BMP, HSTROPN ####[facility] [address] [place], [place] [address]MyvgwxMaryse Foster XR CHEST 1 Von 06-25-2020 XR [...] ONEAL BATISTA Date: 2020-06-25 18:33 Normal [facility] CULTURE URINEon 05-08-2020 CULTURE URINE Culture [...] Trimethoprim/Sulfame thoxazole <=20 S F Normal [facility] Comment on above: Performed By: #### U RCX ####[facility] [address] [place], [place] [address]SqcwyiMaryse Foster CBC AUTO DIFFon 05-06-2020 BASO # 0.0 103/ul Normal 0.0-0.1 [facility] Comment on above: Performed By: #### C BC #### [facility] [address] [place], [place] [address] Maryse Foster Basophils/100 WBC (Bld) 0.7 % Normal 0.2-2.0 [facility] Comment on above: Performed By: #### C BC #### [facility] [address] [place] [address] Maryse Kristin EO # 0.0 103/ul Normal 0.0-0.7 [facility] Comment on above: Performed By: #### C BC #### [facility] [address] [place] [address] Maryse Kristin Eosinophils/100 WBC (Bld) 1.0 % Normal 0.9-7.0 [facility] Comment on above: Performed By: #### C BC #### [facility] [address] [place] [address] Maryse Kristin Erythrocyte distribution width (RBC) [Ratio] 12.0 % Normal 11.0-15.0 [facility] Comment on above: Performed By: #### C BC #### [facility] [address] [place] [address] Maryse Kristin Hematocrit (Bld) [Volume fraction] 35.0 % Critically low 36.0-48.0 [facility] Comment on above: Performed By: #### C BC #### [facility] [address] [place] [address] Maryse Kristin Hemoglobin (Bld) [Mass/Vol] 11.2 g/dL Critically low 12.0-16.0 [facility] Comment on above: Performed By: #### C BC #### [facility] [address] [place] [address] Maryse Kristin IG # 0.02 10e3/ul Normal 0.00-0.03 [facility] Comment on above: Performed By: #### C BC #### [facility] [address] [place] [address] Maryse Kristin IG % 0.5 % Normal 0.0-0.5 [facility] Comment on above: Performed By: #### C BC #### [facility] [address] [place] [address] Maryse Kristin LYMPH # 1.6 103/ul Normal 1.2-3.8 [facility] Comment on above: Performed By: #### C BC #### [facility] [address] [place], [place] [address] Maryse Foster Lymphocytes/100 WBC (Bld) 38.1 % Normal 20.5-60.0 [facility] Comment on above: Performed By: #### C BC #### [facility] [address] [place], [place] [address] Maryse Foster MANUAL DIFF REQ NO Normal [facility] Comment on above: Performed By: #### C BC #### [facility] [address] [place], [place] [address] Marysehumberto Jerryen MCH (RBC) [Entitic mass] 31.5 pg Normal 26.7-34.0 [facility] Comment on above: Performed By: #### C BC #### [facility] [address] [place], [place] [address] Marysehumberto Foster MCHC (RBC) [Mass/Vol] 32.0 g/dL Normal 29.9-35.2 [facility] Comment on above: Performed By: #### C BC #### [facility] [address] [place] [address] Marysehumberto Jerryen MCV (RBC) [Entitic vol] 98.6 fL Normal 81.0-99.0 [facility] Comment on above: Performed By: #### C BC #### [facility] [address] [place], [place] [address] Maryse Kristin MONO # 0.5 103/ul Normal 0.3-0.8 [facility] Comment on above: Performed By: #### C BC #### [facility] [address] [place] [address] Maryse Kristin Monocytes/100 WBC (Bld) 11.4 % Normal 1.7-12.0 [facility] Comment on above: Performed By: #### C BC #### [facility] [address] [place], [place] [address] Mayrse Kristin NEUT # 2.0 103/ul Normal 1.4-6.5 [facility] Comment on above: Performed By: #### C BC #### [facility] [address] [place], [place] [address] Maryse Kristin Neutrophils/100 WBC (Bld) 48.3 % Normal 43.0-75.0 [facility] Comment on above: Performed By: #### C BC #### [facility] [address] [place] [address] Maryse Foster Platelet mean volume (Bld) [Entitic vol] 10.8 fL Normal 9.5-13.5 [facility] Comment on above: Performed By: #### C BC #### [facility] [address] [place] [address] Maryse Foster PLT 165 103/ul Normal 150-450 [facility] Comment on above: Performed By: #### C BC #### [facility] [address] [place] [address] Maryse Foster RBC 3.55 106/ul Critically low 4.20-5.40 [facility] Comment on above: Performed By: #### C BC #### [facility] [address] [place] [address] Maryse Foster WBC 4.2 103/ul Normal 4.0-11.0 [facility] Comment on above: Performed By: #### C BC #### [facility] [address] [place], [place] [address] Maryse Foster CT CSPINE WO CONon 1 [...] MOSES CRISOSTOMO Date: 2020-05-06 01:15 Normal [facility] CT FACIAL BONES WO CONon CT [...] Eliezer MANJARREZ Date: 2020-05-06 01:06 Normal [facility] CT HEAD WO CONon 05-06-2020 CT [...] by: Eliezer MANJARREZ Date: 2020-05-06 01:04 Normal [facility] CT LSPINE WO CONon 1 CT [...] Eliezer MANJARREZ Date: 2020-05-06 01:11 Normal [facility] ER URINE PROFILEon 1 Bilirubin Ql (U) Negative Normal NEGATIVE [facility] Comment on above: Performed By: #### NELDA ARNOLD #### [facility] [address] [place] [address] Maryse Kristin Clarity (U) SL CLOUDY Abnormal CLEAR [facility] Comment on above: Performed By: #### NELDA ARNOLD #### [facility] [address] [place] [address] Maryse Kristin Color (U) DK. ORANGE Abnormal YELLOW [facility] Comment on above: Performed By: #### NELDA ARNOLD #### [facility] [address] [place] [address] Maryse Kristin ERUAHD A micrscopic examination will be performed if indicated. Normal [facility] Comment on above: Performed By: #### NELDA ARNOLD #### [facility] [address] [place] [address] Maryse Kristin Glucose Ql (U) Negative Normal NEGATIVE [facility] Comment on above: Performed By: #### NELDA ARNOLD #### [facility] [address] [place] [address] Maryse Kristin Hemoglobin Ql (U) LARGE Abnormal NEGATIVE [facility] Comment on above: Performed By: #### NELDA ARNOLD #### [facility] [address] [place] [address] Maryse Kristin Ketones Ql (U) Negative Normal NEGATIVE [facility] Comment on above: Performed By: #### NELDA ARNOLD #### [facility] [address] [place] [address] Maryse Kristin LEUKOCYTES SMALL Abnormal NEGATIVE [facility] Comment on above: Performed By: #### LUISA ARNOLDRO #### [facility] [address] [place], [place] [address] Maryse Kristin Nitrite Ql (U) Positive Abnormal NEGATIVE [facility] Comment on above: Performed By: #### LUISA ARNOLDRO #### [facility] [address] [place], [place] [address] Maryse Kristin pH (U) 6.0 [pH] Normal 5-9 [facility] Comment on above: Performed By: #### LUISA ARNOLDRO #### [facility] [address] [place] [address] Maryse Kristin Protein (U) [Mass/Vol] 30 mg/dL Abnormal NEGATIVE/ TRACE [facility] Comment on above: Performed By: #### NELDA ARNOLD #### [facility] [address] [place], [place] [address] Marysehumberto Foster SPEC GRAVITY 1.020 Normal 1.005-<=1.025 [facility] Comment on above: Performed By: #### NELDA ARNOLD #### [facility] [address] [place] [address] Maryse Kristin UR MICRO IND INDICATED Normal [facility] Comment on above: Performed By: #### LUISA ARNOLDRO #### [facility] [address] [place] [address] Marysehumberto Foster Urobilinogen Qn (U) 0.2 {Mazin'U}/dL Normal 0.2 - 1.0 [facility] Comment on above: Performed By: #### LUISA ARNOLDRO #### [facility] [address] [place] [address] Maryse Foster PROF 14(COMP METB)on 021 Albumin [Mass/Vol] 4.3 g/dL Normal 3.5-5.0 [facility] Comment on above: Performed By: #### C MP #### [facility] [address] [place] [address] Maryse Kristin Albumin/Globulin [Mass ratio] 1.3 {ratio} Normal [facility] Comment on above: Performed By: #### C MP #### [facility] [address] [place] [phone] Maryse Kristin ALP [Catalytic activity/Vol] 60 U/L Normal 38-126 [facility] Comment on above: Performed By: #### C MP #### [facility] [address] [place] [id number] Maryse Kristin ALT [Catalytic activity/Vol] 12 U/L Normal 9-52 [facility] Comment on above: Performed By: #### C MP #### [facility] [address] [address] Maryse Kristin Anion gap [Moles/Vol] 16.6 mmol/L Normal [facility] Comment on above: Performed By: #### C MP #### [facility] [address] [place] [address] Maryse Kristin AST [Catalytic activity/Vol] 14 U/L Normal 14-36 [facility] Comment on above: Performed By: #### C MP #### [facility] [address] [place] [address] Maryse Kristin Bilirubin [Mass/Vol] 0.2 mg/dL Normal 0.2-1.3 [facility] Comment on above: Performed By: #### C MP #### [facility] [address] [place] [address] Maryse Kristin Calcium [Mass/Vol] 10.5 mg/dL Critically high 8.4-10.2 [facility] Comment on above: Performed By: #### C MP #### [facility] [address] [place], [place] [id number] Maryse Kristin Chloride [Moles/Vol] 109 mmol/L Critically high 98-107 [facility] Comment on above: Performed By: #### C MP #### [facility] [address] [place], [place] [address] Maryse Kristin CO2 [Moles/Vol] 22.5 mmol/L Normal 22.0-30.0 [facility] Comment on above: Performed By: #### C MP #### [facility] [address] [id number] Maryse Kristin Creatinine [Mass/Vol] 0.96 mg/dL Normal 0.52-1.04 [facility] Comment on above: Performed By: #### C MP #### [facility] [address] [id number] Maryse Kristin EGFR-AF BRAZILIAN >60 Normal >=60 [facility] Comment on above: Performed By: #### C MP #### [facility] [address] [address] Maryse Kristin EGFR-NON AF BRAZILIAN 56 mL/min/1.73m2 Critically low >=60 [facility] Comment on above: Performed By: #### C MP #### [facility] [address] [address] Maryse Kristin Globulin (S) [Mass/Vol] 3.4 g/dL Normal [facility] Comment on above: Performed By: #### C MP #### [facility] [address] [address] Maryse Kristin Glucose [Mass/Vol] 111 mg/dL Critically high 74-106 [facility] Comment on above: Performed By: #### C MP #### [facility] [address] [address] Maryse Kristin Potassium [Moles/Vol] 3.1 mmol/L Critically low 3.4-5.0 [facility] Comment on above: Performed By: #### C MP #### [facility] [address] [address] Maryse Kristin Protein [Mass/Vol] 7.7 g/dL Normal 6.1-8.2 [facility] Comment on above: Performed By: #### C MP #### [facility] [address] [place] [address] Maryse Kristin Sodium [Moles/Vol] 145 mmol/L Normal 137-145 [facility] Comment on above: Performed By: #### C MP #### [facility] [address] [address] Maryse Kristin Urea nitrogen [Mass/Vol] 26.0 mg/dL Critically high 7.0-17.0 [facility] Comment on above: Performed By: #### C MP #### [facility] [address] [place], [place] [id number] Maryse Kristin Urea nitrogen/Creatinin e [Mass ratio] 27.1 mg/mg Normal [facility] Comment on above: Performed By: #### C MP #### [facility] [address] [place], [place] [id number] Maryse Kristin URINE MICROSCOPIC ONLYon BACTERIA LARGE Abnormal NONE SEEN [facility] Comment on above: Performed By: #### Nguyễn JARAMILLO UMICRO #### [facility] [address] [place] [address] Maryse Kristin Bacteria identified Cx Nom (U) INDICATED Normal [facility] Comment on above: Performed By: #### Nguyễn JARAMILLO UMICRO #### [facility] [address] [place] [address] Maryse Kristin CAST NONE SEEN Normal NONE SEEN [facility] Comment on above: Performed By: #### Nguyễn JARAMILLO UMICRO #### [facility] [address] [place] [address] Maryse Kristin Crystals LM Nom (Urine sed) NONE SEEN Normal NONE SEEN [facility] Comment on above: Performed By: #### Nguyễn JARAMILLO UMICRO #### [facility] [address] [place] [address] Maryse Kristin Epithelial cells LM Ql (Urine sed) NONE SEEN Normal NONE SEEN /RARE [facility] Comment on above: Performed By: #### Nguyễn JARAMILLO UMICRO #### [facility] [address] [place] [address] Maryse Kristin MUCOUS NONE SEEN Normal NONE SEEN [facility] Comment on above: Performed By: #### Nguyễn JARAMILLO UMICRO #### [facility] [address] [place], [place] [id number] Maryse Kristin RBC NONE SEEN Abnormal 0-2 [facility] Comment on above: Performed By: #### Nguyễn JARAMILLO UMICRO #### [facility] [address] [place], [place] [address] Maryse Foster WBC 20-50 Abnormal NONE SEEN [facility] Comment on above: Performed By: #### NELDA ARNOLD #### [facility] [address] [place], [place] [address] Maryse Foster Encounters Encounter Date Encounter Type Care Provider Facility Start: 09-01-2020 End: 09-01-[address] CHRIS LEIJA Facility:[facility] Start: 06-25-2020 End: 06-26-[address] NICK MORELAND Facility:[facility] Start: 05-06-2020 End: 05-06-[address] CHRIS LEIJA Facility:[facility] Payers Date Payer Category Payer Medicaid [id number] 1957 Medicare [id number] 1940 Unknown [id number] 1940 Unknown [id number] 1940 Unknown [id number] Summary Purpose Family History No Family History Records FoundNo Family History Records Found Advance Directives No Advanced Directives Records FoundNo Advanced Directives Records Found Additional Source Comments INFORMATION SOURCE (unrecogn ized section and content) DATE CREATED AUTHOR 09/10/2020 [facility] DATE CREATED AUTHOR AUTHOR'S ORGANIZ ATION 04/24/2021 [facility] FOR RECORDS PERTAINING TO PATIENTS WHO [...] BE BASED ON THE PRIMARY CLINICAL RECORDS. [facility] [employer] provides no warranty or guarantee of the accuracy or completeness of information in this document.
[2024-05-22 05:48] LABS: Basophils Percent Auto 0.6 % (0.2-2.0); Eosinophils Percent Auto 0.6 % (0.9-7.0); Hematocrit 30.3 % (36.0-48.0); Hemoglobin 9.9 g/dL (12.0-16.0); Immature Granulocytes Abs Auto 0.01 10^3/uL (0.00-0.03); Immature Granulocytes Pct Auto 0.2 % (0.0-0.5); Lymphocytes Absolute Auto 1.8 10^3/uL (1.2-3.8); Mean Corpuscular HGB Conc 32.7 g/dL (29.9-35.2); Mean Corpuscular Hemoglobin 31.4 pg (26.7-34.0); Mean Corpuscular Volume 96.2 fL (81.0-99.0); Mean Platelet Volume 9.6 fL (9.5-13.5); Monocytes Absolute Auto 0.4 10^3/uL (0.3-0.8); Monocytes Percent Auto 8.2 % (1.7-12.0); Neutrophils Absolute Auto 2.8 10^3/uL (1.4-6.5); Neutrophils Percent Auto 55.4 % (43.0-75.0); Platelet Count 264 10^3/uL (150-450); Red Blood Count 3.15 10^6/uL (4.20-5.40); Red Cell Distribution Width 13.2 % (11.0-15.0)
[2024-05-22 05:49] LABS: PCO2 VBG 38.4 mmHg (40.0-52.0); pH VBG 7.427 (7.330-7.430)
--- NOTE | 2024-05-22 06:00 | ECG_ITS ---
[facility] Test Date: 2024-05-22 Pat Name: NANCY GAO Department: Room: 2731 Gender: Female Getterer: : 1940 Requested By: [id number] Order Number: [id number] Reading MD: ADELA STOLL Measurements Intervals [place] Rate: 66 P: 49 [place]: 142 QRS: 23 QRSD: 90 T: -30 QT: 374 QTc: 388 Interpretive Statements [address]/T wave changes, can't exclude inferolateral ischemia 9130 borderline ECG Electronically Signed On 05-22-2024 6:55:33 EST by ADELA STOLL
[2024-05-22 06:07] LABS: Alanine Aminotransferase 26 U/L (14-59); Albumin Level 3.2 g/dL (3.4-5.0); Alkaline Phosphatase 75 U/L (46-116); Anion Gap 11.7; Aspartate Amino Transferase 24 U/L (15-37); BUN Creatinine Ratio 27.7; Bilirubin Total 0.1 mg/dL (0.2-1.0); Calcium 9.1 mg/dL (8.5-10.1); Carbon Dioxide 26.4 mmol/L (21.0-32.0); Chloride 109 mmol/L (98-107); Estimated GFR (African America >60 (>=60 mL/min/1.73m^2); Estimated GFR (Non-African Ame >60 (>=60 mL/min/1.73m^2); Glucose 100 mg/dL (74-106); Magnesium 1.9 mg/dL (1.8-2.4); Potassium 4.1 mmol/L (3.5-5.1); Sodium 143 mmol/L (136-145); Total Protein 6.6 g/dL (6.4-8.2)
[2024-05-22 06:08] LABS: Albumin Globulin Ratio 0.9; Globulin 3.4 g/dL
[2024-05-22] MEDS: IMIPENEM/CILASTATIN SODIUM 1,000 MG in 0.9 % SODIUM CHLORIDE 100 ML 100 MG IV (06:09)
[2024-05-22 06:18] LABS: Troponin I High Sensitivity 287.9 pg/mL (4.0-51.3)
--- OUTSIDE RECORDS SUMMARY | 2024-05-22 07:10 | XMS_ITS | CCD ---
Author Organization [facility] Care Team Providers Care Wire Chief Name Role Phone MERLY, DR NICK Juárez [...] (1 source) hydrOXYzine Drug Allergy 01-16-2013 [facility] busPIRone (1 source) busPIRone Drug Allergy 11-15-2016 [facility] NSAIDs (1 source) Ibuprofen Drug Allergy 01-16-2013 [facility] Penicillins (antibiotic) (1 source) Penicillins Drug Allergy 01-16-2013 [facility] Problems Active Problems Problem Classification Problem [...] 05-12-2020 Chronic Other aftercare (5 sources) Other director clinical information services (current) drug therapy; Translations: [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 CURRENT DRUG THERAPY] Onset: 06-28-2020 Episodic Other aftercare (1 source) 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 Performed By: #### C UU, ADDONUAPLUS #### [facility] [address] [place] [address] [place] Bilirubin,Urine Normal Negative [facility] Comment on above: Order Comment: Name Collection Type:: Clean-Voided Midstream Result Comment: Unab le to obtain accurate result due to color interference. Performed By: #### C UU, ADDONUAPLUS #### [facility] [address] [place] [address] [place] Calcium Oxalate Crystals,Urine 2+ Normal [facility] Comment on above: Order Comment: Name Collection Type:: Clean-Voided Midstream Performed By: #### C UU, ADDONUAPLUS #### [address] Color (U) Graves Critically abnormal Yellow [facility] Comment on above: Order Comment: Name Collection Type:: Clean-Voided Midstream Performed By: #### C UU, ADDONUAPLUS #### [facility] [address] [place] [address] [place] Glucose Ql (U) Normal Normal [facility] Comment on above: Order Comment: Name Collection Type:: Clean-Voided Midstream Result Comment: Unab le to obtain accurate result due to color interference. Performed By: #### C UU, ADDONUAPLUS #### [address] Ketones Ql (U) Normal Negative [facility] Comment on above: Order Comment: Name Collection Type:: Clean-Voided Midstream Result Comment: Unab le to obtain accurate result due to color interference. Performed By: #### C UU, ADDONUAPLUS #### [address] Leukocyte esterase Test strip Ql (U) Normal Negative [facility] Comment on above: Order Comment: Name Collection Type:: Clean-Voided Midstream Result Comment: Unab le to obtain accurate result due to color interference. Performed By: #### C UU, ADDONUAPLUS #### [place] [address] [place] Nitrite,Urine Normal Negative [facility] Comment on above: Order Comment: Name Collection Type:: Clean-Voided Midstream Result Comment: Unab le to obtain accurate result due to color interference. Performed By: #### C UU, ADDONUAPLUS #### [place] [address] [place] Occult Blood,Urine Normal Negative [facility] [place] Comment on above: Order Comment: Name Collection Type:: Clean-Voided Midstream Result Comment: Unab le to obtain accurate result due to color interference. Performed By: #### C UU, ADDONUAPLUS #### [place] [address] [place] pH,Urine Normal 5.0-9.0 [facility] Comment on above: Order Comment: Name Collection Type:: Clean-Voided Midstream Result Comment: Unab le to obtain accurate result due to color interference. Performed By: #### C UU, ADDONUAPLUS #### [place] [address] [place] Protein,Urine Normal Negative [facility] Comment on above: Order Comment: Name Collection Type:: Clean-Voided Midstream Result Comment: Unab le to obtain accurate result due to color interference. Performed By: #### C UU, ADDONUAPLUS #### [address] RBC,Urine 20-49 High 0-4 [facility] Comment on above: Order Comment: Name Collection Type:: Clean-Voided Midstream Performed By: #### C UU, ADDONUAPLUS #### [address] Specificy [place],Urine 1.015 Normal 1.001-1.030 [facility] Comment on above: Order Comment: Name Collection Type:: Clean-Voided Midstream Performed By: #### C UU, ADDONUAPLUS #### [address] Squamous Epithelial Cell,Urine None Seen Normal 0-2 [facility] Comment on above: Order Comment: Name Collection Type:: Clean-Voided Midstream Performed By: #### C UU, ADDONUAPLUS #### [address] Urobilinogen,Urine Normal Normal [facility] [place] Comment on above: Order Comment: Name Collection Type:: Clean-Voided Midstream Result Comment: Unab le to obtain accurate result due to color interference. Performed By: #### C UU, ADDONUAPLUS #### [address] WBC,Urine 20-49 High 0-4 [facility] Comment on above: Order Comment: Name Collection Type:: Clean-Voided Midstream Performed By: #### C UU, ADDONUAPLUS #### [address] Urine Cultureon 11-14-2020 Bacteria identified Cx Nom (U) ORGANISM: Escherichia coli (O:ESCCOL) [place] Count >100,000 Aerobic LINAD Charge (NUC86) ----- SUSCEPTIBILITY ---- ORGANISM: O:ESCCOL [...] RESISTANT TO ALL B-LACTAM DRUGS. PERFORMED BY: [place] [address] PATHOLOGIST SPORTS TEACHER MOSHE SERVIN M.D. Normal [facility] Comment on above: Performed By: #### C UU, ADDONUAPLUS #### [facility] [address] [place] [address] AMMONIAon 09-01-2020 Ammonia (P) [Moles/Vol] 28 umol/L Normal 10-30 [facility] Comment on above: Performed By: #### A MM ####[facility] [address] [place] [address] BNPon 06-25-2020 Natriuretic peptide B (Bld) [Mass/Vol] 329.0 pg/mL Normal <=1,800.0 [facility] Comment on above: Performed By: #### B INCUBATOR MACHINE OPERATOR, BMP, HSTROPN ####[facility] [address] [place] [address] CBC AUTO DIFFon 06-25-2020 BASO # 0.0 103/ul Normal 0.0-0.1 [facility] Comment on above: Performed By: #### C BC #### [facility] [address] [place], [place] [address] Maryse Foster Basophils/100 WBC (Bld) 0.1 % Critically low 0.2-2.0 [facility] Comment on above: Performed By: #### C BC #### [facility] [address] [place] [id number] Maryse Foster EO # 0.0 103/ul Normal 0.0-0.7 [facility] Comment on above: Performed By: #### C BC #### [facility] [address] [id number] Maryse Foster Eosinophils/100 WBC (Bld) 0.0 % Critically low 0.9-7.0 [facility] Comment on above: Performed By: #### C BC #### [facility] [address] [address] Maryse Foster Erythrocyte distribution width (RBC) [Ratio] 12.6 % Normal 11.0-15.0 [facility] Comment on above: Performed By: #### C BC #### [facility] [address] [place], [place] [id number] Maryse Foster Hematocrit (Bld) [Volume fraction] 35.5 % Critically low 36.0-48.0 [facility] Comment on above: Performed By: #### C BC #### [facility] [address] [id number] Maryse Foster Hemoglobin (Bld) [Mass/Vol] 11.4 g/dL Critically low 12.0-16.0 [facility] Comment on above: Performed By: #### C BC #### [facility] [address] [id number] Maryse Foster IG # 0.04 10e3/ul Critically high 0.00-0.03 [facility] Comment on above: Performed By: #### C BC #### [facility] [address] [place] [address] Maryse Foster IG % 0.5 % Normal 0.0-0.5 [facility] Comment on above: Performed By: #### C BC #### [facility] [address] [place] [address] Maryse Foster LYMPH # 1.1 103/ul Critically low 1.2-3.8 [facility] Comment on above: Performed By: #### C BC #### [facility] [address] [place] [address] Maryse Foster Lymphocytes/100 WBC (Bld) 14.3 % Critically low 20.5-60.0 [facility] Comment on above: Performed By: #### C BC #### [facility] [address] [place] [address] Maryse Foster MANUAL DIFF REQ NO Normal [facility] Comment on above: Performed By: #### C BC #### [facility] [address] [place] [address] Maryse Foster MCH (RBC) [Entitic mass] 31.9 pg Normal 26.7-34.0 [facility] Comment on above: Performed By: #### C BC #### [facility] [address] [place] [address] Maryse Foster MCHC (RBC) [Mass/Vol] 32.1 g/dL Normal 29.9-35.2 [facility] Comment on above: Performed By: #### C BC #### [facility] [address] [place] [address] Marysehumberto Foster MCV (RBC) [Entitic vol] 99.4 fL Critically high 81.0-99.0 [facility] Comment on above: Performed By: #### C BC #### [facility] [address] [place] [address] Marysehumberto Jerryen MONO # 0.4 103/ul Normal 0.3-0.8 [facility] Comment on above: Performed By: #### C BC #### [facility] [address] [place], [place] [phone] Marysehumberto Jerryen Monocytes/100 WBC (Bld) 5.3 % Normal 1.7-12.0 [facility] Comment on above: Performed By: #### C BC #### [facility] [address] [id number] Maryse Foster NEUT # 5.9 103/ul Normal 1.4-6.5 [facility] Comment on above: Performed By: #### C BC #### [facility] [address] [phone] Maryse Foster Neutrophils/100 WBC (Bld) 79.8 % Critically high 43.0-75.0 [facility] Comment on above: Performed By: #### C BC #### [facility] [address] [phone] Maryse Foster Platelet mean volume (Bld) [Entitic vol] 11.3 fL Normal 9.5-13.5 [facility] Comment on above: Performed By: #### C BC #### [facility] [address] [place] [address] Maryse Foster PLT 160 103/ul Normal 150-450 [facility] Comment on above: Performed By: #### C BC #### [facility] [address] [id number] Maryse Foster RBC 3.57 106/ul Critically low 4.20-5.40 [facility] Comment on above: Performed By: #### C BC #### [facility] [address] [phone] Maryse Foster WBC 7.3 103/ul Normal 4.0-11.0 [facility] Comment on above: Performed By: #### C BC #### [facility] [address] [place], [place] [address] Maryse Foster CULTURE URINEon 06-25-2020 CULTURE URINE Culture Observations: LINDA TO FOLLOW Isolate 1 Escherichia coli >100,000 CFU/mL OF Normal [facility] Comment on above: Performed By: #### U RCX ####[facility] [address] [place] [id number] Foster PROF CHEM 8 (BAS METB)on 03- 27-2021 Anion gap [Moles/Vol] 12.0 mmol/L Normal [facility] Comment on above: Performed By: #### B INCUBATOR MACHINE OPERATOR, BMP, HSTROPN ####[facility] [address] [id number] Kristin Calcium [Mass/Vol] 9.7 mg/dL Normal 8.4-10.2 [facility] Comment on above: Performed By: #### B INCUBATOR MACHINE OPERATOR, BMP, HSTROPN ####[facility] [address] [phone] Kristin Chloride [Moles/Vol] 110 mmol/L Critically high 98-107 [facility] Comment on above: Performed By: #### B INCUBATOR MACHINE OPERATOR, BMP, HSTROPN ####[facility] [address] [place], [place] [address]Gerken Kristin CO2 [Moles/Vol] 26.1 mmol/L Normal 22.0-30.0 [facility] Comment on above: Performed By: #### B INCUBATOR MACHINE OPERATOR, BMP, HSTROPN ####[facility] [address] [place], [place] [address]Gerken Kristin Creatinine [Mass/Vol] 1.01 mg/dL Normal 0.52-1.04 [facility] Comment on above: Performed By: #### B INCUBATOR MACHINE OPERATOR, BMP, HSTROPN ####[facility] [address] [place], [place] [address]Gerken Kristin EGFR-AF WELSH >60 Normal >=60 [facility] Comment on above: Performed By: #### B INCUBATOR MACHINE OPERATOR, BMP, HSTROPN ####[facility] [address] [place], [place] [address]Gerken Kristin EGFR-NON AF WELSH 53 mL/min/1.73m2 Critically low >=60 [facility] Comment on above: Performed By: #### B INCUBATOR MACHINE OPERATOR, BMP, HSTROPN ####[facility] [address] [phone] Kristin Glucose [Mass/Vol] 127 mg/dL Critically high 74-106 [facility] Comment on above: Performed By: #### B INCUBATOR MACHINE OPERATOR, BMP, HSTROPN ####[facility] [address] [place], [place] [address]Mwymja Kristin Potassium [Moles/Vol] 4.1 mmol/L Normal 3.4-5.0 [facility] Comment on above: Performed By: #### B INCUBATOR MACHINE OPERATOR, BMP, HSTROPN ####[facility] [address] [place], [place] [address]Ssumpo Kristin Sodium [Moles/Vol] 144 mmol/L Normal 137-145 [facility] Comment on above: Performed By: #### B INCUBATOR MACHINE OPERATOR, BMP, HSTROPN ####[facility] [address] [place], [place] [address]Tjamjq Kristin Urea nitrogen [Mass/Vol] 36.0 mg/dL Critically high 7.0-17.0 [facility] Comment on above: Performed By: #### B INCUBATOR MACHINE OPERATOR, BMP, HSTROPN ####[facility] [address] [place] [phone] Kristin Urea nitrogen/Creatinin e [Mass ratio] 35.6 mg/mg Normal [facility] Comment on above: Performed By: #### B INCUBATOR MACHINE OPERATOR, BMP, HSTROPN ####[facility] [address] [place], [place] [address]Clbbkx Kristin TROPONIN, HIGH SENSITIVITYon 06-25-2020 HSTROP 8.0 pg/mL Normal 4.0-35.5 [facility] Comment on above: Result Comment: CUT- OFF POINTS HAVE BEEN ESTABLISHED BASED ON THE FOURTH UNIVERSAL DEFINITIONS OF MYOCARDIAL INFARCTION. THE UPPER REFERENCE LIMIT (URL) OF TROPONIN, DEFINED THE 99TH PERCENTILE OF cTnI DISTRIBUTION IN A REFERENCE POPULATION, HAS BEEN CONFIRMED THE DECISION THRESHOLD FOR [place] DIAGNOSIS. Performed By: #### H STROPN #### [facility] [address] [place], [place] [address] Maryse Kristin HSTROP 7.1 pg/mL Normal 4.0-35.5 [facility] Comment on above: Result Comment: CUT- OFF POINTS HAVE BEEN ESTABLISHED BASED ON THE FOURTH UNIVERSAL DEFINITIONS OF MYOCARDIAL INFARCTION. THE UPPER REFERENCE LIMIT (URL) OF TROPONIN, DEFINED THE 99TH PERCENTILE OF cTnI DISTRIBUTION IN A REFERENCE POPULATION, HAS BEEN CONFIRMED THE DECISION THRESHOLD FOR [place] DIAGNOSIS. Performed By: #### B INCUBATOR MACHINE OPERATOR, BMP, HSTROPN ####[facility] [address] [place], [place] [address]OsxbphMaryse Foster XR CHEST 1 Von 06-25-2020 XR [...] ONEAL BATISTA Date: 2020-06-25 18:33 Normal [facility] CULTURE URINEon 05-08-2020 CULTURE URINE Culture Observations: [...] Trimethoprim/Sulfame thoxazole <=20 S F Normal [facility] Comment on above: Performed By: #### U RCX ####[facility] [address] [place], [place] [address]WdctslMaryse Foster CBC AUTO DIFFon 05-06-2020 BASO # 0.0 103/ul Normal 0.0-0.1 [facility] Comment on above: Performed By: #### C BC #### [facility] [address] [place], [place] [address] Maryse Foster Basophils/100 WBC (Bld) 0.7 % Normal 0.2-2.0 [facility] Comment on above: Performed By: #### C BC #### [facility] [address] [place] [address] Maryse Kristin EO # 0.0 103/ul Normal 0.0-0.7 [facility] Comment on above: Performed By: #### C BC #### [facility] [address] [place] [address] Maryse Kristin Eosinophils/100 WBC (Bld) 1.0 % Normal 0.9-7.0 [facility] Comment on above: Performed By: #### C BC #### [facility] [address] [place] [address] Maryse Kristin Erythrocyte distribution width (RBC) [Ratio] 12.0 % Normal 11.0-15.0 [facility] Comment on above: Performed By: #### C BC #### [facility] [address] [place] [address] Maryse Kristin Hematocrit (Bld) [Volume fraction] 35.0 % Critically low 36.0-48.0 [facility] Comment on above: Performed By: #### C BC #### [facility] [address] [place] [address] Maryse Kristin Hemoglobin (Bld) [Mass/Vol] 11.2 g/dL Critically low 12.0-16.0 [facility] Comment on above: Performed By: #### C BC #### [facility] [address] [place] [address] Maryse Kristin IG # 0.02 10e3/ul Normal 0.00-0.03 [facility] Comment on above: Performed By: #### C BC #### [facility] [address] [place] [address] Maryse Kristin IG % 0.5 % Normal 0.0-0.5 [facility] Comment on above: Performed By: #### C BC #### [facility] [address] [place] [address] Maryse Kristin LYMPH # 1.6 103/ul Normal 1.2-3.8 [facility] Comment on above: Performed By: #### C BC #### [facility] [address] [place], [place] [phone] Maryse Foster Lymphocytes/100 WBC (Bld) 38.1 % Normal 20.5-60.0 [facility] Comment on above: Performed By: #### C BC #### [facility] [address] [place], [place] [phone] Maryse Foster MANUAL DIFF REQ NO Normal [facility] Comment on above: Performed By: #### C BC #### [facility] [address] [place], [place] [id number] Marysehumberto Jerryen MCH (RBC) [Entitic mass] 31.5 pg Normal 26.7-34.0 [facility] Comment on above: Performed By: #### C BC #### [facility] [address] [place], [place] [phone] Marysehumberto Foster MCHC (RBC) [Mass/Vol] 32.0 g/dL Normal 29.9-35.2 [facility] Comment on above: Performed By: #### C BC #### [facility] [address] [place] [address] Marysehumberto Jerryen MCV (RBC) [Entitic vol] 98.6 fL Normal 81.0-99.0 [facility] Comment on above: Performed By: #### C BC #### [facility] [address] [place], [place] [id number] Maryse Kristin MONO # 0.5 103/ul Normal 0.3-0.8 [facility] Comment on above: Performed By: #### C BC #### [facility] [address] [place] [address] Maryse Kristin Monocytes/100 WBC (Bld) 11.4 % Normal 1.7-12.0 [facility] Comment on above: Performed By: #### C BC #### [facility] [address] [place], [place] [phone] Maryse Kristin NEUT # 2.0 103/ul Normal 1.4-6.5 [facility] Comment on above: Performed By: #### C BC #### [facility] [address] [place], [place] [phone] Maryse Kristin Neutrophils/100 WBC (Bld) 48.3 % Normal 43.0-75.0 [facility] Comment on above: Performed By: #### C BC #### [facility] [address] [place] [address] Maryse Foster Platelet mean volume (Bld) [Entitic vol] 10.8 fL Normal 9.5-13.5 [facility] Comment on above: Performed By: #### C BC #### [facility] [address] [place] [address] Maryse Foster PLT 165 103/ul Normal 150-450 [facility] Comment on above: Performed By: #### C BC #### [facility] [address] [place] [address] Maryse Foster RBC 3.55 106/ul Critically low 4.20-5.40 [facility] Comment on above: Performed By: #### C BC #### [facility] [address] [place] [address] Maryse Foster WBC 4.2 103/ul Normal 4.0-11.0 [facility] Comment on above: Performed By: #### C BC #### [facility] [address] [place], [place] [phone] Maryse Foster CT CSPINE WO CONon 1 [...] MOSES CRISOSTOMO Date: 2020-05-06 01:15 [address] [facility] [address] FACIAL BONES WO CONon CT FACIAL [...] Eliezer MANJARREZ Date: 2020-05-06 01:06 Normal [facility] CT HEAD WO CONon 05-06-2020 CT HEAD [...] by: Eliezer MANJARREZ Date: 2020-05-06 01:04 Normal [facility] CT LSPINE WO CONon 1 CT LSPINE [...] Eliezer MANJARREZ Date: 2020-05-06 01:11 Normal [facility] ER URINE PROFILEon 1 Bilirubin Ql (U) Negative Normal NEGATIVE [facility] Comment on above: Performed By: #### NELDA ARNOLD #### [facility] [address] [place] [address] Maryse Kristin Clarity (U) SL CLOUDY Abnormal CLEAR [facility] Comment on above: Performed By: #### NELDA ARNOLD #### [facility] [address] [place] [address] Maryse Kristin Color (U) DK. ORANGE Abnormal YELLOW [facility] Comment on above: Performed By: #### NELDA ARNOLD #### [facility] [address] [place] [address] Maryse Kristin ERUAHD A micrscopic examination will be performed if indicated. Normal [facility] Comment on above: Performed By: #### NELDA ARNOLD #### [facility] [address] [place] [address] Maryse Kristin Glucose Ql (U) Negative Normal NEGATIVE [facility] Comment on above: Performed By: #### NELDA ARNOLD #### [facility] [address] [place] [address] Maryse Kristin Hemoglobin Ql (U) LARGE Abnormal NEGATIVE [facility] Comment on above: Performed By: #### NELDA ARNOLD #### [facility] [address] [place] [address] Maryes Kristin Ketones Ql (U) Negative Normal NEGATIVE [facility] Comment on above: Performed By: #### NELDA ARNOLD #### [facility] [address] [place] [address] Maryse Kristin LEUKOCYTES SMALL Abnormal NEGATIVE [facility] Comment on above: Performed By: #### LUISA ARNOLDRO #### [facility] [address] [place], [place] [address] Maryse Kristin Nitrite Ql (U) Positive Abnormal NEGATIVE [facility] Comment on above: Performed By: #### LUISA ARNOLDRO #### [facility] [address] [place], [place] [address] Maryse Kristin pH (U) 6.0 [pH] Normal 5-9 [facility] Comment on above: Performed By: #### LUISA ARNOLDRO #### [facility] [address] [place] [address] Maryse Kristin Protein (U) [Mass/Vol] 30 mg/dL Abnormal NEGATIVE/ TRACE [facility] Comment on above: Performed By: #### NELDA ARNOLD #### [facility] [address] [place], [place] [phone] Marysehumberto Foster SPEC GRAVITY 1.020 Normal 1.005-<=1.025 [facility] Comment on above: Performed By: #### NELDA ARNOLD #### [facility] [address] [place] [address] Maryse Kristin UR MICRO IND INDICATED Normal [facility] Comment on above: Performed By: #### LUISA ARNOLDRO #### [facility] [address] [place] [address] Marysehumberto Foster Urobilinogen Qn (U) 0.2 {Mazin'U}/dL Normal 0.2 - 1.0 [facility] Comment on above: Performed By: #### LUISA ARNOLDRO #### [facility] [address] [place] [address] Maryse Foster PROF 14(COMP METB)on 021 Albumin [Mass/Vol] 4.3 g/dL Normal 3.5-5.0 [facility] Comment on above: Performed By: #### C MP #### [facility] [address] [place] [address] Maryse Kristin Albumin/Globulin [Mass ratio] 1.3 {ratio} Normal [facility] Comment on above: Performed By: #### C MP #### [facility] [address] [place] [phone] Maryse Kristin ALP [Catalytic activity/Vol] 60 U/L Normal 38-126 [facility] Comment on above: Performed By: #### C MP #### [facility] [address] [phone] Maryse Kristin ALT [Catalytic activity/Vol] 12 U/L Normal 9-52 [facility] Comment on above: Performed By: #### C MP #### [facility] [address] [place] [address] Maryse Kristin Anion gap [Moles/Vol] 16.6 mmol/L Normal [facility] Comment on above: Performed By: #### C MP #### [facility] [address] [place] [address] Maryse Kristin AST [Catalytic activity/Vol] 14 U/L Normal 14-36 [facility] Comment on above: Performed By: #### C MP #### [facility] [address] [place] [address] Maryse Kristin Bilirubin [Mass/Vol] 0.2 mg/dL Normal 0.2-1.3 [facility] Comment on above: Performed By: #### C MP #### [facility] [address] [place] [address] Maryse Kristin Calcium [Mass/Vol] 10.5 mg/dL Critically high 8.4-10.2 [facility] Comment on above: Performed By: #### C MP #### [facility] [address] [place], [place] [id number] Maryse Kristin Chloride [Moles/Vol] 109 mmol/L Critically high 98-107 [facility] Comment on above: Performed By: #### C MP #### [facility] [address] [place], [place] [id number] Maryse Kristin CO2 [Moles/Vol] 22.5 mmol/L Normal 22.0-30.0 [facility] Comment on above: Performed By: #### C MP #### [facility] [address] [id number] Maryse Kristin Creatinine [Mass/Vol] 0.96 mg/dL Normal 0.52-1.04 [facility] Comment on above: Performed By: #### C MP #### [facility] [address] [id number] Maryse Kristin EGFR-AF WELSH >60 Normal >=60 [facility] Comment on above: Performed By: #### C MP #### [facility] [address] [address] Maryse Kristin EGFR-NON AF WELSH 56 mL/min/1.73m2 Critically low >=60 [facility] Comment on above: Performed By: #### C MP #### [facility] [address] [address] Maryse Kristin Globulin (S) [Mass/Vol] 3.4 g/dL Normal [facility] Comment on above: Performed By: #### C MP #### [facility] [address] [address] Maryse Kristin Glucose [Mass/Vol] 111 mg/dL Critically high 74-106 [facility] Comment on above: Performed By: #### C MP #### [facility] [address] [address] Maryse Kristin Potassium [Moles/Vol] 3.1 mmol/L Critically low 3.4-5.0 [facility] Comment on above: Performed By: #### C MP #### [facility] [address] [address] Maryse Kristin Protein [Mass/Vol] 7.7 g/dL Normal 6.1-8.2 [facility] Comment on above: Performed By: #### C MP #### [facility] [address] [place] [address] Maryse Kristin Sodium [Moles/Vol] 145 mmol/L Normal 137-145 [facility] Comment on above: Performed By: #### C MP #### [facility] [address] [address] Maryse Kristin Urea nitrogen [Mass/Vol] 26.0 mg/dL Critically high 7.0-17.0 [facility] Comment on above: Performed By: #### C MP #### [facility] [address] [place], [place] [phone] Maryse Kristin Urea nitrogen/Creatinin e [Mass ratio] 27.1 mg/mg Normal [facility] Comment on above: Performed By: #### C MP #### [facility] [address] [place], [place] [phone] Maryse Kristin URINE MICROSCOPIC ONLYon BACTERIA LARGE Abnormal NONE SEEN [facility] Comment on above: Performed By: #### Nguyễn JARAMILLO UMICRO #### [facility] [address] [place] [address] Maryse Kristin Bacteria identified Cx Nom (U) INDICATED Normal [facility] Comment on above: Performed By: #### Nguyễn JARAMILLO UMICRO #### [facility] [address] [place] [address] Maryse Kristin CAST NONE SEEN Normal NONE SEEN [facility] Comment on above: Performed By: #### Nguyễn JARAMILLO UMICRO #### [facility] [address] [place] [address] Maryse Kristin Crystals LM Nom (Urine sed) NONE SEEN Normal NONE SEEN [facility] Comment on above: Performed By: #### Nguyễn JARAMILLO UMICRO #### [facility] [address] [place] [address] Maryse Kristin Epithelial cells LM Ql (Urine sed) NONE SEEN Normal NONE SEEN /RARE [facility] Comment on above: Performed By: #### Nguyễn JARAMILLO UMICRO #### [facility] [address] [place] [address] Maryse Kristin MUCOUS NONE SEEN Normal NONE SEEN [facility] Comment on above: Performed By: #### Nguyễn JARAMILLO UMICRO #### [facility] [address] [place], [place] [phone] Maryse Kristin RBC NONE SEEN Abnormal 0-2 [facility] Comment on above: Performed By: #### Nguyễn JARAMILLO UMICRO #### [facility] [address] [place], [place] [address] Maryse Foster WBC 20-50 Abnormal NONE SEEN [facility] Comment on above: Performed By: #### NELDA ARNOLD #### [facility] [address] [place], [place] [address] Maryse Foster Encounters Encounter Date Encounter Type Care Provider Facility Start: 09-01-2020 End: 09-01-[address] CHRIS LEIJA Facility:[facility] Start: 06-25-2020 End: 06-26-[address] NICK MORELAND Facility:[facility] Start: 05-06-2020 End: 05-06-[address] CHRIS LEIJA Facility:[facility] Payers Date Payer Category Payer Medicaid [id number] 1957 Medicare [id number] 1940 Unknown [id number] 1940 Unknown [id number] 1940 Unknown [id number] Summary Purpose Family History No Family History Records FoundNo Family History Records Found Advance Directives No Advanced Directives Records FoundNo Advanced Directives Records Found Additional Source Comments INFORMATION SOURCE (unrecogn ized section and content) DATE CREATED AUTHOR 09/10/2020 [facility] DATE CREATED AUTHOR AUTHOR'S ORGANIZ ATION 04/24/2021 [facility] FOR RECORDS PERTAINING TO PATIENTS WHO ARE [...] BE BASED ON THE PRIMARY CLINICAL RECORDS. [facility] [employer] provides no warranty or guarantee of the accuracy or completeness of information in this document.
--- NOTE | 2024-05-22 10:48 | CM.NOTE ---
Rounds made with Dr. Gabriel, discussed pt's condition in-depth with pt and daughter regarding underlying disease process. Daughter will discuss with siblings plan of care moving forward. They will decide if pt will discharge back to [facility] with Hospice of do further testing here (echo, EEG).
[2024-05-22] MEDS: TRAMADOL HCL 50 MG TABLET PO (11:09)
[2024-05-22] MEDS: SCOPOLAMINE 1 MG/3 DAYS TRANSDERM PATCH 1 PATCH TD (11:33)
--- NOTE | 2024-05-22 11:40 | SWNOTE1 ---
Important Message from Medicare reviewed and discussed with patient's daughters. Pt's daughters verbalized understanding and 1 daughter signed the form. Original given to patient's daughters and copy placed in patient?s chart.
--- NOTE | 2024-05-22 11:42 | SWNOTE1 ---
SW met with pt to discuss dc needs. Pt's daughters are in room. Pt is hard to understand when speaking. Daughters answered questions. SW let daughters know that SW called [facility] and [facility] and waiting for call backs. Daughters did express that plan is for her to return to [facility] intermediate and to keep hospice. Daughter voiced she spoke to hospice earlier and she is still signed on. SW expressed it may be different if pt was made inpt status, but hospice will let SW know. At this time the daughters are discussing if they want to pursue any further treatment or have pt return to [facility] with hospice today. SW to follow as needed. SW did speak to nurse from [facility]. She stated she is the night nurse and to call the office. SHELBY also spoke with Gita at [facility] and they are ready for pt to return at any time. SW to send updates to [facility].
--- NOTE | 2024-05-22 11:55 | SWNOTE1 ---
SW sent ED note, labs, vitals, nursing notes to [facility].
--- NOTE | 2024-05-22 12:46 | PM.HP ---
HPI H&P: HPI History of Present Illness Chief complaint: AFLUTTER RVR,ACUTE RESP. ACIDOSIS,DEHYDRATION,AMS Narrative: HPI and Hospital Course: 84-year-old female with severe Parkinson disease, currently enrolled in hospice lives at [facility] was found to have an unresponsive episode after where she was not at her baseline and confused for about an hour. Is Daughter was contacted, and daughter wanted patient sent to the ER for evaluation of why she is very unresponsive. Nursing staff contacted their physician recommended keeping the patient at the facility and that she will be reassessed in the morning. However, was daughter was informed of the change in clinical status, she insisted on transferring the patient to ER for evaluation. Patient was evaluated in the ED, her hospice status was revoked and was admitted overnight for observation. While in ER, patient was found to have intermittent a flutter with RVR/SVT for which she was given multiple IV medications. She was admitted to ICU for close monitoring. When I evaluated the patient, she was at her baseline mentation. She is alert and oriented and answering questions. She has severe dysarthria because of Parkinson and is very hard to understand. Her daughter who is POA was present at bedside. I had a detailed discussion with the patient and her family. I explained in detail her current illness, prognosis. I also discussed goals of care, end-of-life care and concept of hospice care. Patient and her daughter like to continue with hospice care. Patient is medically stable for discharge to the facility back on hospice. I will add 7 days of oral doxycycline for pneumonia Opioid HPI Opioid Management Most Recent Pain and Opioid Data: Last Pain Scale 5 05/22/24 12:15 05/22/24 Last Pain Assessment 05/22/24 12:00 Last MAR Pain Assessment 05/22/24 12:15 Last ORT Total Score 0 05/22/24 02:55 05/22/24 Last ORT Risk Category Low Risk 05/22/24 02:55 05/22/24 Review of Systems ROS Status of ROS 10 or more systems reviewed and unremarkable except as noted in history and below [facility] Medical History (Updated 05/22/24 @ 12:51 by Shaikh Harvey MD) GERD (gastroesophageal reflux disease) ?K21.9 - Gastro-esophageal reflux disease without esophagitis (ICD-10) Anxiety disorder ?F41.9 - Anxiety disorder, unspecified (ICD-10) Tinea unguium ?B35.1 - Tinea unguium (ICD-10) Repeated falls ?R29.6 - Repeated falls (ICD-10) Depression ?F32.A - Depression, unspecified (ICD-10) Insomnia ?G47.00 - Insomnia, unspecified (ICD-10) Restless leg syndrome ?G25.81 - Restless legs syndrome (ICD-10) Pseudobulbar affect ?F48.2 - Pseudobulbar affect (ICD-10) Hyperlipidemia ?E78.5 - Hyperlipidemia, unspecified (ICD-10) Dysphagia ?R13.10 - Dysphagia, unspecified (ICD-10) Angina pectoris ?I20.9 - Angina pectoris, unspecified (ICD-10) Idiopathic peripheral autonomic neuropathy ?G90.09 - Other idiopathic peripheral autonomic neuropathy (ICD-10) Impaired gait and mobility ?R26.89 - Other abnormalities of gait and mobility (ICD-10) Cognitive communication deficit ?R41.841 - Cognitive communication deficit (ICD-10) Iron deficiency anemia ?D50.9 - Iron deficiency anemia, unspecified (ICD-10) Dysarthria and anarthria ?R47.1 - Dysarthria and anarthria (ICD-10) COVID-19 ?U07.1 - COVID-19 (ICD-10) Nuclear cataract Polyosteoarthritis ?M15.9 - Polyosteoarthritis, unspecified (ICD-10) Hypertension ?I10 - Essential (primary) hypertension (ICD-10) Weakness ?R53.1 - Weakness (ICD-10) Bipolar disorder ?F31.9 - Bipolar disorder, unspecified (ICD-10) PVD (peripheral vascular disease) ?I73.9 - Peripheral vascular disease, unspecified (ICD-10) COPD (chronic obstructive pulmonary disease) ?J44.9 - Chronic obstructive pulmonary disease, unspecified (ICD-10) Parkinson disease ?G20.A1 - Parkinson's disease without dyskinesia, without mention of fluctuations (ICD-10) Meds Home Medications and Allergies Home Medications ?Medication ?Instructions ?Recorded ?Confirmed ?Type alendronate 70 mg tablet 70 mg PO .once weekly, saturday02/15/24 05/22/24 History benzonatate 200 mg capsule 200 mg PO Q6H PRN cough 02/15/24 05/22/24 History carbidopa 25 mg-levodopa 100 mg 1 tab PO TID tremors 02/15/24 05/22/24 History tablet entacapone 200 mg tablet 200 mg PO TID PRN tremors 02/15/24 05/22/24 History eslicarbazepine 200 mg tablet 1,000 mg PO DAILY 02/15/24 05/22/24 History (Aptiom) fluticasone furoate 27.5 1 spray intranasal DAILY PRN 02/15/24 05/22/24 History mcg/actuation nasal allergy symptoms spray,suspension (Flonase Sensimist) mirtazapine 7.5 mg tablet 7.5 mg PO BEDTIME 02/15/24 05/22/24 History omeprazole 20 mg capsule,delayed 40 mg PO DAILY 02/15/24 05/22/24 History release pravastatin 40 mg tablet 40 mg PO BEDTIME 02/15/24 05/22/24 History ropinirole 0.5 mg tablet 0.5 mg PO TID 02/15/24 05/22/24 History sucralfate 1 gram tablet (Carafate) 1 g PO Q4H PRN stomach 02/15/24 05/22/24 History tramadol 50 mg tablet 50 mg PO Q12H PRN pain 02/15/24 05/22/24 History acetaminophen 500 mg tablet 1,000 mg PO TID PRN pain 05/22/24 05/22/24 History ascorbic acid (vitamin C) 250 mg 250 mg PO DAILY 05/22/24 05/22/24 History tablet (Vitamin C) calcium 600 mg (as 1 tab PO DAILY 05/22/24 05/22/24 History carbonate)-vitamin D3 10 mcg (400 unit) tablet (Calcium 600 + D(3)) cholecalciferol (vitamin D3) 1,250 50,000 unit PO QWEEK 05/22/24 05/22/24 History mcg (50,000 unit) capsule (Decara) diclofenac sodium 1 % topical gel 2 g topical QID PRN pain, moderate 05/22/24 05/22/24 History ipratropium 0.5 mg-albuterol 3 mg 3 ml inhalation Q4H PRN shortness 05/22/24 05/22/24 History (2.5 mg base)/3 mL nebulization of breath or wheezing soln lactulose 10 gram/15 mL oral 30 ml PO DAILY PRN constipation 05/22/24 05/22/24 History solution ondansetron HCl 4 mg tablet 4 mg PO Q6H PRN nausea and vomiting 05/22/24 05/22/24 History scopolamine base 1 mg over 3 days 1 patch transdermal Q72H 05/22/24 05/22/24 History transdermal patch sennosides 8.6 mg tablet (Janey-manan) 8.6 mg PO BID 05/22/24 05/22/24 History Allergies Allergy/AdvReac Type Severity Reaction Status Date / Time buspirone (From BuSpar) Allergy Intermediate Rash Verified 02/15/24 17:47 hydroxyzine (From Vistaril) Allergy Intermediate Rash Verified 02/15/24 17:47 Penicillins Allergy Intermediate Rash Verified 02/15/24 17:47 ibuprofen Allergy Unknown Unknown Verified 02/15/24 17:47 Exam Constitutional Vital Signs, click to edit/add: Last Vital Signs Temp 98.9 F 05/22/24 12:00 Pulse 75 05/22/24 12:00 Resp 16 05/22/24 12:00 BP 154/85 H 05/22/24 12:00 Pulse Ox 98 05/22/24 12:00 O2 Del Method Room Air 05/22/24 02:57 General appearance: cooperative, comfortable, ill appearing and frail appearing [facility] Common normals: normocephalic and head/scalp atraumatic Respiratory Common normals: no use of accessory muscles Effort & inspection: able to speak in complete sentences and decreased respiratory effort Auscultation: rales, rhonchi and diminished lung sounds Cardio Common normals: regular rate, regular rhythm, S1 normal heart sound and S2 normal heart sound GI Common normals: Normal to inspection, nondistended, normoactive bowel sounds present, soft to palpation, non-tender and no hepatosplenomegaly Extremity Common normals: normal to inspection Neuro Common normals: oriented x3 and moves all extremities Other: Advanced Parkinson with tremors, bradykinesia, rigidity noted. Psych Common normals: mental status grossly normal, thought process normal, denies homicidal ideation and denies suicidal ideation Results Labs Labs: Short CBC 05/21/24 05/22/24 Range/Units 21:40 05:31 WBC 7.6 5.0 (4.0-11.0) 10^3/uL Hgb 10.8 L 9.9 L (12.0-16.0) g/dL Hct 34.0 L 30.3 L (36.0-48.0) % Plt Count 311 264 (150-450) 10^3/uL BMP 05/21/24 05/22/24 21:40 05:31 Sodium 145 143 Potassium 4.4 4.1 Chloride 108 H 109 H Carbon Dioxide 29.9 26.4 BUN 27.0 H 23.0 H Creatinine 1.02 0.83 Glucose 139 H 100 Calcium 9.3 9.1 Liver Function 05/21/24 05/22/24 Range/Units 21:40 05:31 Total Bilirubin 0.2 0.1 L (0.2-1.0) mg/dL AST 39 H 24 (15-37) U/L ALT 18 26 (14-59) U/L Alkaline Phosphatase 85 75 (46-116) U/L Albumin 3.6 3.2 L (3.4-5.0) g/dL ABG ABG results: 05/21/24 05/22/24 21:40 05:31 VBG pH 7.318 L 7.427 VBG pCO2 57.1 H 38.4 L Assessment and Plan Assessment and Plan (1) Seizure-like activity: Assessment and Plan: Prior hx of seizures. Likely breakthrough seizures based on presentation. No acute finding on CTH. She is already on Aptiom for it. C/w same. Dose can be adjusted if needed. (2) Atrial flutter with rapid ventricular response: Assessment and Plan: Returned to [facility]. No need for anticoagulation. (3) Parkinson disease: Assessment and Plan: Severe end-stage Parkinson disease. Continue with home med's. Qualifiers: Dyskinesia presence: with dyskinesia Fluctuating manifestations: with fluctuating manifestations Qualified Code(s): G20.B2 - Parkinson's disease with dyskinesia, with fluctuations (4) Mucus plugging of bronchi: Assessment and Plan: Patient encouraged to use spirometry. She is also on a scopolamine patch. At high risk of aspiration. (5) Pneumonia: Assessment and Plan: Likely from aspiration. Will discharge on oral doxycycline. Qualifiers: Pneumonia type: aspiration pneumonia Aspiration pneumonia type: unspecified Laterality: bilateral Lung location: unspecified part of lung Qualified Code(s): J69.0 - Pneumonitis due to inhalation of food and vomit (6) Dysphagia causing pulmonary aspiration with swallowing: Assessment and Plan: On modified diet. Refusing PEG tube for tube feeds. (7) Hypertension: Assessment and Plan: Continue with home med occasions Qualifiers: Hypertension type: primary hypertension Qualified Code(s): I10 - Essential (primary) hypertension (8) GERD (gastroesophageal reflux disease): Assessment and Plan: Continue with omeprazole. Qualifiers: Esophagitis presence: without esophagitis Qualified Code(s): K21.9 - Gastro-esophageal reflux disease without esophagitis (9) Depression: Assessment and Plan: Stable mood. Continue with home medications Qualifiers: Depression Type: major depressive disorder Major depression recurrence: recurrent Active/Remission status: in full remission Qualified Code(s): F33.42 - Major depressive disorder, recurrent, in full remission (10) Restless leg syndrome: Assessment and Plan: Continue home medication (11) Hyperlipidemia: Assessment and Plan: Continue with statin Qualifiers: Hyperlipidemia type: unspecified Qualified Code(s): E78.5 - Hyperlipidemia, unspecified Plan I had a detailed discussion with patient and her family. Given her advanced Parkinson, her personal wishes-will not pursue further testing or treatment. Okay to discharge back to [facility] with hospice. Will discharge on 7 days of oral doxycycline.
[2024-05-22] MEDS: CARBIDOPA/LEVODOPA 25 MG-100 MG TABLET 1 TAB PO (13:14)
[2024-05-22] MEDS: ROPINIROLE HCL 0.25 MG TABLET 0.5 MG PO (13:14)
[2024-05-22] MEDS: ACETAMINOPHEN 500 MG TABLET 1000 MG PO (13:28)
--- NOTE | 2024-05-22 13:44 | SWNOTE1 ---
Transport is set with [place] for 3:45 for pt to return to [facility] supervisor intermediates. SW called [facility] and notified of time. SW called [facility] and they would like information from stay and nh information. Case management faxed over pt's stay information. [facility] and [facility] aware of time.
== END 2024-05-22 16:17 | DRG 308 ==
LOC: ER 05-22 00:20 → ICU 05-22 07:07
PROVIDERS: Registered Nurse; Admitting Provider Internal Medicine; Emergency Provider Emergency Medicine; PCP Internal Medicine; Visit Provider Internal Medicine
DX: I48.92 Unspecified atrial flutter (principal); J69.0 Pneumonitis due to inhalation of food and vomit; J96.02 Acute respiratory failure with hypercapnia; F31.81 Bipolar II disorder; R40.4 Transient alteration of awareness; E86.0 Dehydration; Z66 Do not resuscitate; R47.1 Dysarthria and anarthria; K21.9 Gastro-esophageal reflux disease without esophagitis; F41.9 Anxiety disorder, unspecified; G25.81 Restless legs syndrome; E78.5 Hyperlipidemia, unspecified; G90.09 Other idiopathic peripheral autonomic neuropathy; R41.841 Cognitive communication deficit; Z99.3 Dependence on wheelchair; Z86.16 Personal history of COVID-19; I10 Essential (primary) hypertension; I73.9 Peripheral vascular disease, unspecified; R56.9 Unspecified convulsions; G20.B2 Parkinson's disease with dyskinesia, with fluctuations; R13.19 Other dysphagia; J44.9 Chronic obstructive pulmonary disease, unspecified
CPT/HCPCS: 36415; 70450; 71045; 71275; 80053; 82800; 83735; 83880; 84443; 84484; 85025; 85610; 85730; 87040; 87070; 87081; 92610; 93005; 94761; 96374; 96375; 97161; 97165; 99285; J0743; J1160; J2060; Q9967